=== PATIENT | male | born 1975 | race Caucasian/White ===

== ENCOUNTER 2019-04-13 05:36 | Observation (INO) | payer OTHER ==
[2019-04-10 16:31] VITALS: BMI 29.5
[~2019-04-13] VITALS: Ht 167.6 cm; Wt 84.2 kg
[2019-04-13] VITALS (26 sets, daily range): BP systolic 101–156; BP diastolic 59–89; PULSE 79–102; RESP 16–18; Ht 167.6 cm; Wt 84.2 kg
[2019-04-13] MEDS ORDERED: METF100010 PO (06:50)
[2019-04-13] MEDS ORDERED: ATOR10TA65 PO (06:50)
[2019-04-13] MEDS ORDERED: CEPH500C PO (06:52)
[2019-04-13] MEDS ORDERED: ROPIVACAINE 0.5 % 30 ML VIAL ONE ×2 (06:54→07:31)
[2019-04-13] MEDS ORDERED: NEOMYC/POLYMYX/BACIT 30 GM OINT ONE (06:55)
[2019-04-13] MEDS ORDERED: POLYMYXIN/BACITRACIN 1L IRRIG ONE (06:55)
[2019-04-13] MEDS ORDERED: WARF5TAB PO (07:01)
--- NOTE | 2019-04-13 07:28 | PREAC ---
Date/Time of Note Date/Time of Note DATE: 04/13/19 TIME: 07:24 Anesthesia Eval and Record Evaluation Time Pre-Procedure Interview DATE: 04/13/19 TIME: 07:24 Age 43 Sex male NPO: 8 hrs Preoperative diagnosis left achilles rupture Planned procedure left achilles tendon repair possible haglunds excision Past Medical History Past Medical History: Includes (on coumadin for recent discovery of blood clot in left left in ER when achilles ruptured. started 10 days ago stopped 3 days ago) Cardio: Dyslipidemia Endo: Diabetes Surgery & Anesthesia Issues No known issue Meds Anticoagulation: Yes (coumadin stoopped 3 days ago) Beta Tiana within 24 hr: No Reason Beta Tiana not given: Pt. not on B-Tiana Reported Medications Warfarin Sodium* (Coumadin*) 5 Mg Tablet, 5 MG PO DAILY, TAB 04/13/19 Cephalexin* (Cephalexin*) 500 Mg Capsule, 500 MG PO Q6, #28 CAP 04/13/19 Atorvastatin Calcium (Atorvastatin Calcium) 10 Mg Tablet, 10 MG PO QHS, #30 TAB 04/13/19 Metformin Hcl* (Metformin Hcl*) 1,000 Mg Tablet, 1000 MG PO WITH BREAKFAST DINNE, #60 TAB 04/13/19 Meds reviewed: Yes Allergies Coded Allergies: No Known Allergy (Unverified , 04/13/19) Allergies Reviewed: Yes Labs/Studies Labs Reviewed: Reviewed by anesthesiologist test: N/A Studies: ECG (NSR) Pre-procedure Exam Last vitals Vital Signs Date Temp Pulse Resp B/P (MAP) Pulse Ox O2 O2 Flow FiO2 Time Delivery Rate 04/13/19 98.4 79 18 156/74 96 Room Air 07:04 (101) Airway: Adequate mouth opening, Adequate thyromental dist Mallampati: Mallampati II Teeth: Normal Lung: Normal Heart: Normal ASA Physical Status ASA physical status: 2 Emergency: None Planned Anesthetic General/MAC: ETT Nerve block: Other (popliteal) Planned Pain Management Single shot nerve block, Parenteral pain med, Local by surgeon Pre-operative Attestations Prior to commencing anesthesia and surgery, the patient was re-evaluated, there was verification of: *The patient's identity *The results of appropriate recent lab work and preoperative vital signs *The above evaluation not changing prior to induction *Anesthetic plan, risk benefits, alternative and complications discussed with patient/family; questions answered; patient/family understands, accepts and wishes to proceed. ABHAY TODD CRNA April 13, 2019 07:28
[2019-04-13] MEDS: SOD CHLORIDE 0.9% 1,000 ML IV SCH (07:30)
[2019-04-13] MEDS ORDERED: MIDAZOLAM 1 MG/ML 2 ML INJ ONE (07:33)
--- NOTE | 2019-04-13 07:56 | HPN ---
Date/Time of Note Date/Time of Note DATE: 04/13/19 TIME: 07:56 Interval H&P Admission Note Pt. seen H&P reviewed: No system changes SHAHLA THACKER MD April 13, 2019 07:56
[2019-04-13] MEDS ORDERED: oxyCODONE 5 MG TAB PO PRN (08:00)
[2019-04-13] MEDS ORDERED: ONDANSETRON 4 MG INJ IV PRN ×2 (08:00→10:30)
[2019-04-13] MEDS ORDERED: DIPHENHYDRAMINE 25 MG CAP PO PRN (08:00)
[2019-04-13] MEDS ORDERED: ACETAMINOPHEN 325 MG TAB PO PRN (08:00)
[2019-04-13] MEDS ORDERED: CEFAZOLIN 1 GM INJ IV SCH (08:00)
[2019-04-13] MEDS: CEFAZOLIN 2 GM/50 ML (PMX) 50 ML IVPB SCH ×2 (08:10→17:20)
[2019-04-13] MEDS ORDERED: THROMBIN (BOVINE) 5,000 UNIT VIAL TP ONE (08:52)
[2019-04-13] MEDS ORDERED: CA CHLORIDE 10% 10 ML SYRINGE ONE (08:52)
[2019-04-13] MEDS ORDERED: METOCLOPRAMIDE 10 MG INJ ONE (08:53)
[2019-04-13] MEDS ORDERED: FAMOTIDINE 20 MG INJ ONE (08:53)
[2019-04-13] MEDS ORDERED: PROPOFOL 20 ML ONE ×2 (08:53→10:09)
[2019-04-13] MEDS ORDERED: ONDANSETRON 4 MG INJ ONE (08:53)
[2019-04-13] MEDS ORDERED: ROCURONIUM 50 MG INJ ONE (08:53)
[2019-04-13] MEDS ORDERED: DEXAMETHASONE 4 MG/ML 5 ML INJ ONE (08:53)
[2019-04-13] MEDS: GABAPENTIN 300 MG CAP PO SCH ×3 (09:00→20:41)
[2019-04-13] MEDS ORDERED: NEOSTIGMINE 3 MG/3 ML SYRINGE ONE (09:14)
[2019-04-13] MEDS ORDERED: GLYCOPYRROLATE 0.4 MG INJ ONE (09:14)
[2019-04-13] MEDS ORDERED: LABETALOL HCL 20MG INJ IV PRN (10:30)
[2019-04-13] MEDS ORDERED: hydrALAzine 20 MG INJ IV PRN (10:30)
[2019-04-13] MEDS ORDERED: FENTAnyl 50 MCG/ML VIAL IV PRN (10:30)
[2019-04-13] MEDS ORDERED: MEPERIDINE 25 MG INJ IV PRN (10:30)
[2019-04-13] MEDS ORDERED: HYDROmorphONE 1 MG/5 ML IV SYRINGE IV PRN ×2 (10:30)
[2019-04-13] MEDS ORDERED: OXYCODONE/ACETAMINOPHEN (5/325) TAB PO PRN ×2 (10:30)
[2019-04-13] MEDS ORDERED: LABETALOL HCL 20MG INJ ONE (10:39)
--- NOTE | 2019-04-13 10:50 | PAC ---
Date/Time of Note Date/Time of Note DATE: 04/13/19 TIME: 10:48 Post-Anesthesia Notes Post-Anesthesia Note Last documented vital signs Vital Signs Date Temp Pulse Resp B/P (MAP) Pulse Ox O2 O2 Flow FiO2 Time Delivery Rate 04/13/19 97.7F 96 10 129/89 99 8L FM 10:41 Activity: WNL Respiratory function: WNL Cardiovascular function: WNL Mental status: Baseline Pain reasonably controlled: Yes Hydration appropriate: Yes Nausea/Vomiting absent: Yes ABHAY TODD CRNA April 13, 2019 10:50
--- NOTE | 2019-04-13 11:15 | OPR ---
Date/Time of Note Date/Time of Note DATE: 04/13/19 TIME: 10:48 Operative Report Procedure Date: April 13, 2019 Preoperative Diagnosis Left achilles tendon rupture left ankle haglunds deformity Postoperative Diagnosis Left achilles tendon rupture left ankle haglunds deformity Operation/Procedure Performed Left Achilles tendon repair with allograft left ankle Demi deformity calcaneal exostectomy Left Achilles calcification removal Left Achilles application of PRP and amnion Left Achilles deep capsular exposure and incision Surgeon Shahla Thacker MD Bridge Operator Slip none Anesthesia Type: general, other (popliteal) Anesthesiologist: ABHAY TODD CRNA Tourniquet Time: 92 min at 250 mmHg Estimated Blood Loss: none Transfusion none Specimen none Grafts/Implants none Complications none Pt Condition Post Procedure: stable Disposition: PACU Indications Patient is a 43-year-old male who sustained a Achilles rupture approximately 4 weeks ago. Of note he has uncontrolled diabetes and at time of initial visit was complaining of calf pain. At that time I obtained an ultrasound which confirmed a positive DVT. Patient was started on Coumadin right away and taken off Coumadin approximately 48 hours prior to surgery today. Patient understands that he will need to be placed on Coumadin, Xarelto or Lovenox directly after surgery is completed at postop day #1. Risk Note: Patient was explained the risks and benefits of surgery and the patient's [place] language including not limited to infection, bleeding, injury to blood vessels, nerves, ligaments or tendons. Risks of anesthesia, deep vein thrombosis and need for reduce future surgery. Patient acknowledged these risk by signing the surgical consent form. Procedure Description Patient was met in the preoperative holding area. The correct operative extremity was marked and confirmed with patient consent. Patient was brought to the operative theater and given preoperative anesthesia and regional block anesthesia. Patient was then prepped and draped in normal sterile fashion in the prone position with all bony prominences well-padded. A timeout was taken and all parties in the room agreed it was a correct patient, extremity and procedure. Attention was initially turned to the Achilles where a paramedian incision was made and brought down to the peritenon. Peritenon was incised and retracted. Using 3-0 Vicryl and blunt retractors to put his limited amount of pressure and tension on the skin as possible the Achilles rupture site was exposed. The Demi deformity was identified and debrided and rasped. Lateral x-ray confirmed a reduced amount of Demi's deformity at the calcaneal exostosis. A calcification was identified in the Achilles rupture which was also removed. The wound was irrigated thoroughly. The deep fascia was opened and exposed to allow for greater release and excursion of the Achilles. The proximal Achilles was then debrided and then using a PARS jig was sutured in the typical pars format with 2 locking sutures. The PARS repair was then tested with the suture construct and shown to be well attached. 2 swivel locks drills were then placed into the calcaneus distal to the Achilles attachment. Using a banana a suture lasso suture was passed from the distal Achilles to the proximal Achilles and then suture was passed out to the proximal Achilles down to the distal Achilles and at the swivel lock site. The Achilles was then tensioned to a resting tension that was applying appropriate reapproximation of the Achilles ends. Sutures were then placed through the swivel locks and then swivel locks were then tensioned and tightened into the calcaneus. At this point in time a Jimenes test was performed showing excellent re-apposition of the Achilles and plantar flexion of the Achilles during calcaneal squeeze. The wound was irrigated thoroughly and the Achilles was then closed again at the tear site with a 3-0 PDS and peritenon was then closed and viscous PRP was placed over the tendon repair site followed by an amniotic membrane placed over the peritenon and Achilles. The remainder of the wound was closed with a 3-0 Monocryl followed by a 4-0 Monocryl. The calcaneal incisional sites were closed with a 4-0 nylon in a vertical mattress fashion. Steri-Strips were then applied over the incision and the wound was then dressed with an amniotic membrane and platelet poor plasma soaked sponges and placed in a well-padded short leg splint in a plantarflexed position. Patient was taken to the PACU in a stable condition. All sponge and needle counts were correct. Toes were warm and well perfused SHAHLA THACKER MD April 13, 2019 10:59
[2019-04-13] MEDS ORDERED: CEFAZOLIN 1 GM INJ ONE (13:17)
--- NOTE | 2019-04-13 13:36 | DS ---
Date/Time of Note Date/Time of Note DATE: 04/13/19 TIME: 13:36 Discharge Summary Admission/Discharge Info Admit Date/Time April 13, 2019 at 08:01 Discharge Date/Time Patient Condition: Stable Hospital Course see dictated report Home Meds Active Scripts Apixaban* (Eliquis*) 5 Mg Tablet, 5 MG PO BID, #60 TAB 2 Refills start 04/19/19 Prov:LUCI BEE 04/14/19 Apixaban* (Eliquis*) 5 Mg Tablet, 10 MG PO BID for 4 Days, #16 TAB Prov:LUCI BEE 04/14/19 Reported Medications Cephalexin* (Cephalexin*) 500 Mg Capsule, 500 MG PO Q6, #28 CAP 04/13/19 Atorvastatin Calcium (Atorvastatin Calcium) 10 Mg Tablet, 10 MG PO QHS, #30 TAB 04/13/19 Metformin Hcl* (Metformin Hcl*) 1,000 Mg Tablet, 1000 MG PO WITH BREAKFAST DINNE, #60 TAB 04/13/19 Discontinued Reported Medications Warfarin Sodium* (Coumadin*) 5 Mg Tablet, 5 MG PO DAILY, TAB 04/13/19 Primary Care Provider Not On Staff Doctor Pending Labs Laboratory Tests Test 04/13/19 06:46 Bedside Glucose 186 mg/dL (70-220) LUCI BEE April 13, 2019 13:36
[2019-04-13] MEDS ORDERED: RIVA15TA PO (13:41)
[2019-04-13] MEDS ORDERED: RIVA20TA5 PO (13:41)
[2019-04-13] MEDS ORDERED: GLUCAGON 1 MG INJ IM PRN (14:00)
[2019-04-13] MEDS ORDERED: GLUCOSE GEL 15 GRAM TUBE BUCCAL PRN (14:00)
[2019-04-13] MEDS ORDERED: GLUCOSE GEL 15 GRAM TUBE PO PRN ×2 (14:00)
[2019-04-13] MEDS ORDERED: DEXTROSE 50% 50 ML SYRINGE IV PRN ×2 (14:00)
[2019-04-13] MEDS: RIVAROXABAN 15 MG TABLET PO SCH (17:33)
[2019-04-13] MEDS: INSULIN ASPART [NOVOLOG] 3 ML PEN SC SCH ×2 (17:34→20:43)
[2019-04-13] MEDS: metFORMIN 500 MG TAB PO SCH (17:41)
[2019-04-13] MEDS: ACCU-CHEK XX SCH ×2 (17:41→21:00)
[2019-04-13] MEDS ORDERED: ATORVASTATIN 10 MG TAB PO SCH (21:00)
[2019-04-14] MEDS: CEFAZOLIN 2 GM/50 ML (PMX) 50 ML IVPB SCH ×3 (00:30→16:21)
[2019-04-14] MEDS ORDERED: ACCU-CHEK XX SCH (02:00)
[2019-04-14 02:50] VITALS: BP 106/61; PULSE 99; RESP 16
[2019-04-14] MEDS: SOD CHLORIDE 0.9% 1,000 ML IV SCH (07:30)
[2019-04-14] MEDS: ACCU-CHEK XX SCH ×3 (07:30→17:26)
[2019-04-14 08:03] VITALS: BP 104/66; PULSE 80; RESP 16
[2019-04-14] MEDS: HYDROmorphONE 1 MG/ML SYG IV PRN ×2 (08:04→12:04)
[2019-04-14] MEDS: INSULIN ASPART [NOVOLOG] 3 ML PEN SC SCH ×3 (08:07→17:26)
[2019-04-14] MEDS: metFORMIN 500 MG TAB PO SCH ×2 (08:11→17:23)
[2019-04-14] MEDS: RIVAROXABAN 15 MG TABLET PO SCH ×2 (08:11→17:23)
[2019-04-14] MEDS: GABAPENTIN 300 MG CAP PO SCH ×2 (08:11→12:13)
[2019-04-14] MEDS ORDERED: RIVAROXABAN 10 MG TABLET PO SCH (10:30)
[2019-04-14 14:16] VITALS: BP 110/72; PULSE 82; RESP 16
[2019-04-14] MEDS ORDERED: APIX5TAB PO (17:48)
--- NOTE | 2019-04-14 22:00 | QN ---
Documentation Comment Patient was discharged prior to my evaluation this evening, despite me asking Patricia to keep him in house until I see him this evening. When I spoke with Patricia this afternoon I specifically asked her to confirm patient had his Xarelto at home prior to discharge. She confirmed patient had the Xarelto at home, but she was asked to keep him in house until I could see him this evening and then discharge patient. Upon arrival to the floor, patient had already been discharged. Patient was discharged with Elliquis per the chart, despite Patricia confirming that patient had already picked up with the xarelto, and when the nurse Marilee spoke to the patient oriana in guamanian they were about to take Coumadin 5mg as the stated Patricia had told her to do, as well as the Xarelto and then parts picker the Elliquis in the morning. Thankfully, we were able to speak to the patient and the this evening and give them accurate instructions on the DVT medication management. Patient was instructed to not take any Coumadin at all and not parts picker the Elliquis and to only take the Xarelto 15 mg po BID for the first 21 days then 20 mg po qday for the first 3-6 mos per PCP. Patient will follow up in 1 week with me in my clinic -- MD KIRSTIE Lynch,SHAHLA Lock MD April 14, 2019 22:00
--- NOTE | 2019-04-14 22:42 | CONS ---
DATE OF ADMISSION: 04/13/2019 DATE OF CONSULTATION: 04/13/2019 INDICATION FOR CONSULTATION: Medical management. HISTORY OF PRESENTING COMPLAINT: Mr. Kruse is a 43-year-old male who was brought in for elective left Achilles tendon repair after he had suffered left Achilles tendon rupture and left ankle Demi's deformity. He apparently suffered the injury 4 weeks ago and was complaining of calf pain. The orthopedic surgeon in the office, had an old did an ultrasound and confirmed the positive DVT. The patient was treated with Coumadin and has been off Coumadin for 48 hours prior to surgery. At this time, he is postop. He is having some postoperative pain, but otherwise is doing well. States he had no complaints prior to surgery notes fever, chest pain, abdominal pain or shortness of breath. Surgery supposedly went well without complications, patient is being admitted postop for observation and possible discharge to home tomorrow on anticoagulation. PAST MEDICAL HISTORY: Positive for: 1. Diabetes mellitus. 2. Recently diagnosed thrombosis. 3. Dyslipidemia. PAST SURGICAL HISTORY: This is his first surgery. ALLERGIES: NO KNOWN ALLERGIES. FAMILY HISTORY: Positive for diabetes. HOME MEDICATIONS: Reviewed and reconciled. REVIEW OF SYSTEMS: Per HPI. PHYSICAL EXAMINATION VITAL SIGNS: Temperature 98, pulse 84, respirations 16, blood pressure 126/81, saturations 97% on room air. GENERAL: The patient was alert, oriented, in no distress. HEENT: Head is normocephalic. Pupils equal, round and reactive. NECK: Supple. CHEST: Clear. CARDIOVASCULAR: S1, S2, no murmurs. ABDOMEN: Soft, nontender. EXTREMITIES: Left lower extremity is encased in a dressing and a short leg splint. PSYCHIATRIC: He was calm and cooperative with exam. LABORATORY VALUES: We have a point of care glucose at 225. ASSESSMENT: A 33-year-old male with past medical history of diabetes mellitus who was brought in for elective left Achilles tendon repair and history of recently diagnosed DVT, for whom we were consulted for monitoring, observation and medical management. PLAN OF CARE: At this time, continue inpatient observation, pain control. Resume home hypoglycemics and titrate as indicated for optimal controlled. Orthopedic surgery has cleared the patient to resume anticoagulation therapy, will begin him on NOAC, contact his insurance company to find out which one is approved. Further intervention will depend on his course. Thank you for the consult. We will follow the patient with you. Dictated By: LUCI BEE MD, BA/KENDRICK Conf#: [id number] DID#: [id number] MTDD
--- NOTE | 2019-04-14 23:09 | DS ---
DATE OF ADMISSION: 04/13/2019 DATE OF DISCHARGE: 04/14/2019 FINAL DIAGNOSIS: A 43-year-old male who suffered: 1. Left Achilles tendon rupture about 4 weeks prior to presentation, brought in for elective repair, status post repair in 07/14/2019. 2. Recently diagnosed lower extremity deep venous thrombosis on anticoagulation. 3. Diabetes mellitus type 2 with suboptimal control. CONSULTS ON THE CASE. We were consulted on this case by surgeon, admitting, Dr. Timoteo Lobo. INTERVENTION: The patient underwent left Achilles' tendon repair with allograft and other procedures 04/13/2019. For details, please review the patient's chart and OP reports. SHORT HOSPITALIZATION COURSE: The patient was monitored in-house observation postoperatively. We provided pain control. Also. blood glucose levels were monitored as well and was started on NOAC for DVT management. The patient was initially started on Xarelto, but when he tried to fill that at the pharmacy, he confirmed that Eliquis actually was covered by his insurance plan, and so he was discharged on Eliquis. FOLLOWUP: He will follow up with his primary care doctor within the next 1 to 2 weeks to notify them of events of hospitalization and for possible titration of his hypoglycemics as he had suboptimal control of his diabetes. I will also follow up with the orthopedic surgeon as per the instructions. DISCHARGE CONDITION: Stable. ACTIVITY: As tolerated. DISCHARGE MEDICATIONS: Please review the patient's chart. The patient will also be discharged with home health for physical therapy. Dictated By: LUCI BEE MD, BA/KENDRICK Conf#: [id number] DID#: [id number] DARION
== END 2019-04-14 18:50 | disposition home or self-care (01) ==
LOC: SDS 05:36 → REC 08:01 → SDS 08:01 → PP2 12:00
PROVIDERS: ADMIT Orthopaedic Surgery; ATTEND Orthopaedic Surgery
DX: S86.012A Strain of left Achilles tendon, initial encounter (principal); M92.62 Juvenile osteochondrosis of tarsus, left ankle; E11.65 Type 2 diabetes mellitus with hyperglycemia; E78.5 Hyperlipidemia, unspecified; Z86.718 Personal history of other venous thrombosis and embolism; Z79.01 Long term (current) use of anticoagulants; X58.XXXA Exposure to other specified factors, initial encounter
CPT/HCPCS: 27652; 28119; 73610; 82306; 82962; 97110; 97116; 97162; 97530; J0690; J1100; J1170; J1815; J2250; J2405; J2710; J2765; J2795; J3010; J7030; Z7500; Z7512; Z7610; G0378

== ENCOUNTER 2019-06-03 13:58 | Inpatient (IN) | payer OTHER ==
[~2019-06-03] VITALS: Ht 167.6 cm; Wt 86.1 kg
[~2019-06-03 13:58] MED LIST: APIX5TAB PO; ATOR10TA65 PO; CEPH500C PO; METF100010 PO
--- NOTE | 2019-06-03 14:42 | ERD ---
ER Documentation Chief Complaint Chief Complaint sent by clinic for l. foot surgical wound opening and diabetes HPI 43-year-old man referred here by medical clinic for wound dehiscence to the left Achilles tendon, he had surgical repair about 2 months ago and states over the last 2 days he has had wound dehiscence, erythema to the skin, and purulent discharge. He was referred here from his medical clinic for evaluation. ROS All systems reviewed and are negative except as per history of present illness. Medications Home Meds Active Scripts Apixaban* (Eliquis*) 5 Mg Tablet, 5 MG PO BID, #60 TAB 2 Refills start 04/19/19 Prov:LUCI BEE. 04/14/19 Apixaban* (Eliquis*) 5 Mg Tablet, 10 MG PO BID for 4 Days, #16 TAB Prov:LUCI EBE M. 04/14/19 Reported Medications Cephalexin* (Cephalexin*) 500 Mg Capsule, 500 MG PO Q6, #28 CAP 04/13/19 Atorvastatin Calcium (Atorvastatin Calcium) 10 Mg Tablet, 10 MG PO QHS, #30 TAB 04/13/19 Metformin Hcl* (Metformin Hcl*) 1,000 Mg Tablet, 1000 MG PO WITH BREAKFAST DINNE, #60 TAB 04/13/19 Allergies Allergies: Coded Allergies: No Known Allergy (Unverified , 04/13/19) PMhx/Soc Left Achilles tendon rupture and surgical repair about 2 months ago, lower extremity DVT, diabetes mellitus type 2 History of Surgery: No Anesthesia Reaction: No Hx Neurological Disorder: No Hx Respiratory Disorders: No Hx Cardiac Disorders: Yes (HIGH CHOLESTEROL) Hx Psychiatric Problems: No Hx Miscellaneous Medical Probl: Yes (dyslipidemia, DM, DVT LLE) Hx Alcohol Use: No Hx Substance Use: No Hx Tobacco Use: No FmHx Family History: No diabetes Physical Exam Vitals Vital Signs Date Temp Pulse Resp B/P (MAP) Pulse Ox O2 O2 Flow FiO2 Time Delivery Rate 06/03/19 98 17 135/85 99 Room Air 19:00 (102) 06/03/19 91 16 123/93 97 Room Air 17:00 (103) 06/03/19 99.4 116 20 113/73 98 14:05 (86) Physical Exam Const: No acute distress, well-developed well-nourished, afebrile Resp: Clear to auscultation bilaterally Cardio: Regular rate and rhythm, no murmurs Skin: Mild wound dehiscence to the surgical site over the left Achilles, there is granulation tissue present and inflammatory changes to the skin around the incision site mild serosanguineous discharge noted, nontender, no purulent discharge Back: No midline or flank tenderness Ext: No cyanosis, or edema, calves are symmetrical, no Homans sign, no popliteal cords sign Neur: Awake and alert x3, no focal deficits or facial asymmetry Psych: Normal Mood and Affect Result Diagram: 06/03/19 1524 06/03/19 1524 Results 24 hrs Laboratory Tests Test 06/03/19 15:24 White Blood Count 13.6 10^3/ul Red Blood Count 5.78 10^6/ul Hemoglobin 15.3 g/dl Hematocrit 45.8 % Mean Corpuscular Volume 79.2 fl Mean Corpuscular Hemoglobin 26.5 pg Mean Corpuscular Hemoglobin Concent 33.4 g/dl Red Cell Distribution Width 12.9 % Platelet Count 329 10^3/UL Mean Platelet Volume 9.3 fl Immature Granulocytes % 0.300 % Neutrophils % 73.7 % Lymphocytes % 18.8 % Monocytes % 6.3 % Eosinophils % 0.5 % Basophils % 0.4 % Nucleated Red Blood Cells % 0.0 /100WBC Immature Granulocytes # 0.040 10^3/ul Neutrophils # 10.1 10^3/ul Lymphocytes # 2.6 10^3/ul Monocytes # 0.9 10^3/ul Eosinophils # 0.1 10^3/ul Basophils # 0.1 10^3/ul Nucleated Red Blood Cells # 0.0 10^3/ul Prothrombin Time 12.9 Sec Prothrombin Time Ratio 1.0 INR International Normalized Ratio 0.96 Activated Partial Thromboplast Time 32.5 Sec Sodium Level 141 mmol/L Potassium Level 3.9 mmol/L Chloride Level 105 mmol/L Carbon Dioxide Level 25 mmol/L Anion Gap 11 Blood Urea Nitrogen 11 mg/dl Creatinine 0.66 mg/dl Est Glomerular Filtrat Rate mL/min > 60 mL/min Glucose Level 185 mg/dl Calcium Level 9.4 mg/dl C-Reactive Protein 3.1 mg/dl Current Medications Medications Dose Sig/Chin Start Time Status Last (Trade) Ordered Route PRN Stop Time Admin Dose Reason Admin Sodium 500 ml @ Q1H STAT 06/03/19 DC 06/03/19 Chloride 500 mls/hr IV 15:01 06/03/19 15:34 16:00 Morphine 4 mg ONCE STAT 06/03/19 DC 06/03/19 Sulfate IV 15:01 06/03/19 15:33 (morphine) 15:04 Ondansetron 4 mg ONCE STAT 06/03/19 DC 06/03/19 HCl (Zofran IV 15:01 06/03/19 15:33 Inj) 15:04 Piperacillin 100 ml @ ONCE ONCE 06/03/19 DC 06/03/19 Sod/ 200 mls/hr IVPB 18:30 06/03/19 18:43 Tazobactam 18:59 Sod Vancomycin 250 ml @ ONCE ONCE 06/03/19 HCl 125 mls/hr IVPB 18:30 06/03/19 20:29 Procedures/MDM IV line was established patient was placed on awake overnight monitor rhythm strip revealed a sinus rhythm at about 80 bpm with upright P and T waves. Patient was afebrile I administered 1 L normal saline IV, morphine 4 mg IV, Zofran 4 mg IV. Left lower extremity ultrasound was performed, no deep vein thrombosis noted CBC and electrolytes were unremarkable, coagulation profile within normal limits. CRP elevated at 3.2 I spoke to the patient's orthopedic surgeon Dr. Kylie Lobo and he agreed to consult the patient in the emergency department and recommended admission for surgical washout in a.m. after seeing the patient at the bedside. Patient to be kept n.p.o. after midnight, I treated him here with Zosyn 3.375 g IV and vancomycin 1 g IV Patient admitted to [facility] Diagnosis: Primary Impression: Postoperative infection Encounter type: initial encounter Postoperative infection type: superficial incisional surgical site Qualified Codes: T81.41XA - Infection following a procedure, superficial incisional surgical site, initial encounter Ruled Out: Encounter for wound re-check Condition: MAYCOL Geronimo MD Jun 03, 2019 14:41
[2019-06-03] MEDS ORDERED: ONDANSETRON 4 MG INJ IV STA (15:01)
[2019-06-03] MEDS ORDERED: morphine 4 MG/ML VIAL IV STA (15:01)
[2019-06-03] MEDS ORDERED: SOD CHLORIDE 0.9% 500 ML IV STA (15:01)
[2019-06-03] MEDS ORDERED: VANCOMYCIN 1 GM (PMX) 250 ML IVPB ONE (18:30)
[2019-06-03] MEDS ORDERED: PIPER-TAZO 3.375 GM IV (PMX) 100 ML IVPB ONE (18:30)
--- NOTE | 2019-06-03 18:39 | QN ---
Documentation Job number: [id number] SHAHLA THACKER MD Jun 03, 2019 18:39
--- NOTE | 2019-06-03 21:24 | CONS ---
DATE OF ADMISSION: 06/03/2019 DATE OF CONSULTATION: 06/03/2019 REQUESTING PHYSICIAN: Preston Gerardo MD REASON FOR CONSULTATION: Left Achilles drainage. HISTORY OF PRESENT ILLNESS: Mr. Kruse is a 43-year-old gentleman who is 7-1/2 weeks status post left Achilles repair. He was doing well up until the past 2 days when he noticed increased redness and drainage from his Achilles wound. The patient went to his PCP and was referred to ED for evaluation today. He denies any fevers, chills, nausea or vomiting. Of note, the patient has a history of diabetes mellitus. PAST MEDICAL HISTORY: Significant for diabetes, hypercholesterolemia as well as a DVT in the left lower extremity, on which he is taking Eliquis for. MEDICATIONS: Please see the medication per the chart. ALLERGIES: NO KNOWN DRUG ALLERGIES. SOCIAL HISTORY: As stated above. FAMILY HISTORY: Nonrelevant. Physical Exam Vitals Vital Signs Date Temp Pulse Resp B/P (MAP) Pulse Ox O2 O2 Flow FiO2 Time Delivery Rate 06/03/19 98 17 135/85 99 Room Air 19:00 (102) 06/03/19 91 16 123/93 97 Room Air 17:00 (103) 06/03/19 99.4 116 20 113/73 98 14:05 (86) Physical Exam Const: No acute distress, well-developed well-nourished, afebrile Resp: Clear to auscultation bilaterally Cardio: Regular rate and rhythm, Skin: Mild wound dehiscence to the surgical site over the left Achilles, there is granulation tissue present and inflammatory changes to the skin around the incision site mild serosanguineous discharge noted, Back: No midline or flank tenderness Ext: No cyanosis, or edema, calves are symmetrical, no Homans sign, no p opliteal cords sign Neur: Awake and alert x3, no focal deficits or facial asymmetry Psych: Normal Mood and Affect MUSCULOSKELETAL: On evaluation of his left extremities, he has erythema, warmth and fluctuance with 1 cm area of wound opening with purulent drainage from his Achilles. He has an intact Jimenes test with plantar flexion on squeeze. He has intact sensation to light touch at the medial, lateral, dorsal plantar, 1st dorsal distribution Result Diagram: 06/03/19 1524 06/03/19 1524 Results 24 hrs Laboratory Tests Test 06/03/19 15:24 White Blood Count 13.6 10^3/ul Red Blood Count 5.78 10^6/ul Hemoglobin 15.3 g/dl Hematocrit 45.8 % Mean Corpuscular Volume 79.2 fl Mean Corpuscular Hemoglobin 26.5 pg Mean Corpuscular Hemoglobin Concent 33.4 g/dl Red Cell Distribution Width 12.9 % Platelet Count 329 10^3/UL Mean Platelet Volume 9.3 fl Immature Granulocytes % 0.300 % Neutrophils % 73.7 % Lymphocytes % 18.8 % Monocytes % 6.3 % Eosinophils % 0.5 % Basophils % 0.4 % Nucleated Red Blood Cells % 0.0 /100WBC Immature Granulocytes # 0.040 10^3/ul Neutrophils # 10.1 10^3/ul Lymphocytes # 2.6 10^3/ul Monocytes # 0.9 10^3/ul Eosinophils # 0.1 10^3/ul Basophils # 0.1 10^3/ul Nucleated Red Blood Cells # 0.0 10^3/ul Prothrombin Time 12.9 Sec Prothrombin Time Ratio 1.0 INR International Normalized Ratio 0.96 Activated Partial Thromboplast Time 32.5 Sec Sodium Level 141 mmol/L Potassium Level 3.9 mmol/L Chloride Level 105 mmol/L Carbon Dioxide Level 25 mmol/L Anion Gap 11 Blood Urea Nitrogen 11 mg/dl Creatinine 0.66 mg/dl Est Glomerular Filtrat Rate mL/min > 60 mL/min Glucose Level 185 mg/dl Calcium Level 9.4 mg/dl C-Reactive Protein 3.1 mg/dl Current Medications Medications Dose Sig/Chin Start Time Status Last (Trade) Ordered Route PRN Stop Time Admin Dose Reason Admin Sodium 500 ml @ Q1H STAT 06/03/19 DC 06/03/19 Chloride 500 mls/hr IV 15:01 06/03/19 15:34 16:00 Morphine 4 mg ONCE STAT 06/03/19 DC 06/03/19 Sulfate IV 15:01 06/03/19 15:33 (morphine) 15:04 Ondansetron 4 mg ONCE STAT 06/03/19 DC 06/03/19 HCl (Zofran IV 15:01 06/03/19 15:33 Inj) 15:04 Piperacillin 100 ml @ ONCE ONCE 06/03/19 DC 06/03/19 Sod/ 200 mls/hr IVPB 18:30 06/03/19 18:43 Tazobactam 18:59 Sod Vancomycin 250 ml @ ONCE ONCE 06/03/19 HCl 125 mls/hr IVPB 18:30 06/03/19 20:29 . ASSESSMENT AND PLAN: The patient is a 43-year-old male 7-1/2 weeks status post left Achilles repair with history of diabetes type 2 and left lower extremity deep venous thrombosis in which he is on Eliquis for, now with 2 days of wound drainage with concern for likely wound infection. PLAN: I am recommending irrigation and debridement of his Achilles. The patient was discussed with the patient and his with a network admin present and we discussed the plan that he may need multiple surgeries for irrigation and debridement and possible flap, possible skin graft, possible revision Achilles repair in the future. Plan at this time is n.p.o. after midnight. Vancomycin and Zosyn per the ID service, which we will obtain an ID consult for. Admit to the hospitalist for overall management as well as diabetes control and DVT management. The patient is nonweightbearing at this time. Plan for I and D tomorrow morning. The patient understood all these questions or concerns and all questions were answered. Dictated By: SHAHLA THACKER MD EIF/NTS Conf#: [id number] DID#: [id number] CC: PRESTON GERARDO MD;*EndCC* MTDD
[2019-06-03] MEDS ORDERED: ALBUTEROL/IPRATROPIUM (NEB) 3 ML AMP HHN PRN (21:30)
[2019-06-03] MEDS ORDERED: NACL 0.9% 3 ML SYG IV SCH (21:30)
[2019-06-03] MEDS ORDERED: ONDANSETRON 4 MG INJ IV PRN (21:30)
[2019-06-03] MEDS ORDERED: HYDROCODONE/APAP (5/325) TAB PO PRN (21:30)
[2019-06-03 22:04] VITALS: BP 126/82; PULSE 89; RESP 17; Ht 167.6 cm; Wt 86.1 kg
--- NOTE | 2019-06-03 22:26 | HP ---
Date/Time of Note Date/Time of Note DATE: 06/03/19 TIME: 22:26 Assessment/Plan VTE Prophylaxis Pharmacological prophylaxis: heparin Lines/Catheters IV Catheter Type (from Nrsg): Saline Lock Assessment/Plan Assessment/Plan 1. Postop infection of left Achilles: Patient is status post repair about 8 weeks ago -IV antibiotic -Plan for washout by Ortho -Pain management 2. Left lower extremity DVT: On Eliquis -Hold Eliquis for now 3. Type 2 diabetes: Insulin while in-house 4. Dyslipidemia: Resume statin when no longer n.p.o. Result Diagram: 06/03/19 1524 06/03/19 1524 Results 24hrs Laboratory Tests Test 06/03/19 15:24 White Blood Count 13.6 H Red Blood Count 5.78 Hemoglobin 15.3 Hematocrit 45.8 Mean Corpuscular Volume 79.2 L Mean Corpuscular Hemoglobin 26.5 L Mean Corpuscular Hemoglobin Concent 33.4 Red Cell Distribution Width 12.9 Platelet Count 329 Mean Platelet Volume 9.3 Immature Granulocytes % 0.300 Neutrophils % 73.7 Lymphocytes % 18.8 Monocytes % 6.3 Eosinophils % 0.5 Basophils % 0.4 Nucleated Red Blood Cells % 0.0 Immature Granulocytes # 0.040 H Neutrophils # 10.1 H Lymphocytes # 2.6 Monocytes # 0.9 Eosinophils # 0.1 Basophils # 0.1 Nucleated Red Blood Cells # 0.0 Erythrocyte Sedimentation Rate 4 Prothrombin Time 12.9 Prothrombin Time Ratio 1.0 INR International Normalized Ratio 0.96 Activated Partial Thromboplast Time 32.5 Sodium Level 141 Potassium Level 3.9 Chloride Level 105 Carbon Dioxide Level 25 Anion Gap 11 Blood Urea Nitrogen 11 Creatinine 0.66 Est Glomerular Filtrat Rate mL/min > 60 Glucose Level 185 Calcium Level 9.4 C-Reactive Protein 3.1 H HPI/ROS Admit Date/Time Admit Date/Time Jun 03, 2019 at 19:13 Hx of Present Illness Patient is a 51-year-old male with a history of type 2 diabetes, dyslipidemia, left lower extremity DVT on Eliquis, and left Achilles tendon repair about 8 weeks ago who presented to ER complaining of redness and drainage in the left Achilles area. When presented to ER, was tachycardic with a heart rate of 116 otherwise no fever. WBC 13,000. Left ankle MRI shows Complete versus near- complete tear of the Achilles tendon, with about 9 mm retraction. PMH/Family/Social Past Medical History Past Surgical Hx: other Family History Significant Family History: no pertinent family hx Social History Alcohol Use: none Smoking Status: Never smoker Drug Use: none Exam Constitutional: other (No acute distress) Head: normocephalic, atraumatic Eyes: EOMI, PERRL Respiratory: clear to auscultation, normal air movement Cardiovascular: regular rate and rhythm Gastrointestinal: soft Extremities: normal pulses Medications Current Medications Dextrose/Sodium Chloride 1,000 ml @ 100 mls/hr Q10H IV ; Start 06/03/19 at 23:59 IV Flush (NS 3 ml) 3 ml PER PROTOCOL IV ; Start 06/03/19 at 21:30 Ondansetron HCl (Zofran Inj) 4 mg Q6H PRN IV NAUSEA/VOMITING; Start 06/03/19 at 21:30 Acetaminophen/ Hydrocodone Bitart ([place] (5/325)) 1 tab Q6H PRN PO .MOD PAIN 4- 6; Start 06/03/19 at 21:30 Morphine Sulfate (morphine) 2 mg Q4H PRN IV .SEVERE PAIN 7-10; Start 06/03/19 at 21:30 Albuterol/ Ipratropium (Duoneb) 3 ml Q2H RESP THERAPY PRN HHN SHORTNESS OF BREATH; Start 06/03/19 at 21:30 Atorvastatin Calcium (Lipitor) 10 mg QHS PO ; Start 06/04/19 at 21:00 Cefepime HCl 50 ml @ 100 mls/hr Q12 IVPB ; Start 06/04/19 at 09:00 Vancomycin HCl (Vanco Iv Per Pharmacy) VANCOMYCIN PER PHARMACY PER PROTOCOL XX ; Start 06/04/19 at 06:00 Vancomycin HCl 250 ml @ 125 mls/hr Q8H IVPB ; Start 06/04/19 at 06:00 Coded Allergies: No Known Allergy (Unverified , 04/13/19) Social History Smoking Status: Never smoker Exam/Review of Systems Vital Signs Vitals Vital Signs Date Temp Pulse Resp B/P (MAP) Pulse Ox O2 O2 Flow FiO2 Time Delivery Rate 06/03/19 98.1 89 17 126/82 97 22:04 (97) 06/03/19 Room Air 21:08 SOLANGE VARGAS MD Jun 03, 2019 22:26
[2019-06-03] MEDS: DEXTROSE 5%-0.45% NACL 1,000 ML IV SCH (22:39)
[2019-06-04] VITALS (20 sets, daily range): BP systolic 107–146; BP diastolic 58–91; PULSE 60–97; RESP 7–20
[2019-06-04] MEDS ORDERED: DEXTROSE 50% 50 ML SYRINGE IV PRN ×2 (01:00)
[2019-06-04] MEDS ORDERED: GLUCAGON 1 MG INJ IM PRN (01:00)
[2019-06-04] MEDS ORDERED: GLUCOSE GEL 15 GRAM TUBE PO PRN ×2 (01:00)
[2019-06-04] MEDS ORDERED: GLUCOSE GEL 15 GRAM TUBE BUCCAL PRN (01:00)
[2019-06-04] MEDS: INSULIN ASPART [NOVOLOG] 3 ML PEN SC SCH ×6 (01:01→20:43)
[2019-06-04] MEDS: VANCOMYCIN 1 GM 250 ML IVPB SCH ×3 (05:14→23:36)
[2019-06-04] MEDS ORDERED: VANCOMYCIN IV PER PHARMACY XX SCH (06:00)
--- NOTE | 2019-06-04 07:29 | PREAC ---
Date/Time of Note Date/Time of Note DATE: 06/04/19 TIME: 07:27 Anesthesia Eval and Record Evaluation Time Pre-Procedure Interview DATE: 06/04/19 TIME: 07:27 Age 43 Sex male NPO: 8 hrs Preoperative diagnosis left achilles tendon infection Planned procedure left achilles irrigation and debridement Past Medical History Past Medical History: Includes Cardio: Dyslipidemia Endo: Diabetes Surgery & Anesthesia Issues No known issue Meds Anticoagulation: No Beta Tiana within 24 hr: No Reason Beta Tiana not given: Pt. not on B-Tiana Active Scripts Apixaban* (Eliquis*) 5 Mg Tablet, 5 MG PO BID, #60 TAB 2 Refills start 04/19/19 Prov:BLAKE BEEGabby M. 04/14/19 Apixaban* (Eliquis*) 5 Mg Tablet, 10 MG PO BID for 4 Days, #16 TAB Prov:LUCI BEE. 04/14/19 Reported Medications Cephalexin* (Cephalexin*) 500 Mg Capsule, 500 MG PO Q6, #28 CAP 04/13/19 Atorvastatin Calcium (Atorvastatin Calcium) 10 Mg Tablet, 10 MG PO QHS, #30 TAB 04/13/19 Metformin Hcl* (Metformin Hcl*) 1,000 Mg Tablet, 1000 MG PO WITH BREAKFAST DINNE, #60 TAB 04/13/19 Current Medications Dextrose/Sodium Chloride 1,000 ml @ 100 mls/hr Q10H IV Last administered on 06/03/19at 22:39; Admin Dose 100 MLS/HR; Start 06/03/19 at 23:59 IV Flush (NS 3 ml) 3 ml PER PROTOCOL IV ; Start 06/03/19 at 21:30 Ondansetron HCl (Zofran Inj) 4 mg Q6H PRN IV NAUSEA/VOMITING; Start 06/03/19 at 21:30 Acetaminophen/ Hydrocodone Bitart ([place] (5/325)) 1 tab Q6H PRN PO .MOD PAIN 4- 6; Start 06/03/19 at 21:30 Morphine Sulfate (morphine) 2 mg Q4H PRN IV .SEVERE PAIN 7-10; Start 06/03/19 at 21:30 Albuterol/ Ipratropium (Duoneb) 3 ml Q2H RESP THERAPY PRN HHN SHORTNESS OF BREATH; Start 06/03/19 at 21:30 Atorvastatin Calcium (Lipitor) 10 mg QHS PO ; Start 06/04/19 at 21:00 Cefepime HCl 50 ml @ 100 mls/hr Q12 IVPB ; Start 06/04/19 at 09:00 Vancomycin HCl (Vanco Iv Per Pharmacy) VANCOMYCIN PER PHARMACY PER PROTOCOL XX ; Start 06/04/19 at 06:00 Vancomycin HCl 250 ml @ 125 mls/hr Q8H IVPB Last administered on 06/04/19at 05:14; Admin Dose 125 MLS/HR; Start 06/04/19 at 06:00 Insulin Aspart (Novolog Insulin Pen) NOVOLOG *MILD* ALGORI... Q4 SC Last administered on 06/04/19at 05:13; Admin Dose 2 UNIT; Start 06/04/19 at 01:00 Miscellaneous Information 1 ea NOTE XX ; Start 06/04/19 at 01:00 Glucose (Glutose) 15 gm Q15M PRN PO DECREASED GLUCOSE; Start 06/04/19 at 01:00 Glucose (Glutose) 22.5 gm Q15M PRN PO DECREASED GLUCOSE; Start 06/04/19 at 01:00 Dextrose (D50w Syringe) 25 ml Q15M PRN IV DECREASED GLUCOSE; Start 06/04/19 at 01:00 Dextrose (D50w Syringe) 50 ml Q15M PRN IV DECREASED GLUCOSE; Start 06/04/19 at 01:00 Glucagon (Glucagen) 1 mg Q15M PRN IM DECREASED GLUCOSE; Start 06/04/19 at 01:00 Glucose (Glutose) 15 gm Q15M PRN BUCCAL DECREASED GLUCOSE; Start 06/04/19 at 01:00 Meds reviewed: Yes Allergies Coded Allergies: No Known Allergy (Unverified , 04/13/19) Allergies Reviewed: Yes Labs/Studies Labs Reviewed: Reviewed by anesthesiologist Result Diagram: 06/04/19 0651 06/03/19 1524 Laboratory Tests 06/03/19 15:24 06/04/19 06:51 test: N/A Pre-procedure Exam Last vitals Vital Signs Date Temp Pulse Resp B/P (MAP) Pulse Ox O2 O2 Flow FiO2 Time Delivery Rate 06/04/19 98.0 92 19 113/59 98 02:01 (77) 06/03/19 Room Air 21:08 Airway: Adequate mouth opening, Adequate thyromental dist Mallampati: Mallampati II Teeth: Normal Lung: Normal Heart: Normal ASA Physical Status ASA physical status: 2 Emergency: None Planned Anesthetic General/MAC: ETT Planned Pain Management Parenteral pain med Pre-operative Attestations Prior to commencing anesthesia and surgery, the patient was re-evaluated, there was verification of: *The patient's identity *The results of appropriate recent lab work and preoperative vital signs *The above evaluation not changing prior to induction *Anesthetic plan, risk benefits, alternative and complications discussed with patient/family; questions answered; patient/family understands, accepts and wishes to proceed. DEBORAH SERRANO Jun 04, 2019 07:29
[2019-06-04] MEDS ORDERED: PROPOFOL 20 ML ONE (07:35)
--- NOTE | 2019-06-04 08:04 | PN ---
Date/Time of Note Date/Time of Note DATE: 06/04/19 TIME: 08:01 Assessment/Plan Lines/Catheters IV Catheter Type (from Nrs): Peripheral IV Assessment/Plan Assessment/Plan 7.5 weeks s/p Achilles repair, uncontrolled DM2, +DVT now with 2 days of purulent drainage - to OR today for I&D - NPO - Vanco Zosyn - ID consulted - NWB --- Bladimir Thacker MD Subjective 24 Hr Interval Summary PAtient doing well today. No f/c/n/v Exam/Review of Systems Vital Signs Vitals Vital Signs Date Temp Pulse Resp B/P (MAP) Pulse Ox O2 O2 Flow FiO2 Time Delivery Rate 06/04/19 98.0 92 19 113/59 98 02:01 (77) 06/03/19 Room Air 21:08 Intake and Output 06/03/19 06/03/19 06/04/19 1515:00 23:00 07:00 IntakeIntake Total 600 ml BalanceBalance 600 ml Exam Constitutional: alert, oriented, well developed Extremities: other (LLE/ wound with erythema and drainage, toes wiggle, silt to the m/l/d/p/fdws) Results Result Diagram: 06/04/19 0651 06/04/19 0651 SHAHLA THACKER MD Jun 04, 2019 08:04
[2019-06-04] MEDS ORDERED: POLYMYXIN B 500000 UNIT INJ ONE (08:13)
[2019-06-04] MEDS: CEFEPIME 1GM/50 ML (PMX) 50 ML IVPB SCH ×2 (08:15→20:46)
[2019-06-04] MEDS ORDERED: BACITRACIN 50000 UNITS INJ ONE (08:38)
[2019-06-04] MEDS ORDERED: VANCOMYCIN 1 GM INJ ONE (08:42)
[2019-06-04] MEDS ORDERED: ROPIVACAINE 0.5 % 30 ML VIAL ONE (09:45)
[2019-06-04] MEDS ORDERED: BACITRACIN/POLYMYXIN 28.35 GM OINT TOP ONE (09:45)
[2019-06-04] MEDS: DEXTROSE 5%-0.45% NACL 1,000 ML IV SCH (09:58)
[2019-06-04] MEDS ORDERED: KETOROLAC 30 MG INJ ONE (10:15)
[2019-06-04] MEDS ORDERED: LIDOCAINE 2% (SDV) 5 ML INJ ONE (10:15)
[2019-06-04] MEDS ORDERED: ROCURONIUM 50 MG INJ ONE (10:15)
[2019-06-04] MEDS ORDERED: NEOSTIGMINE 3 MG/3 ML SYRINGE ONE (10:30)
[2019-06-04] MEDS ORDERED: GLYCOPYRROLATE 0.4 MG INJ ONE (10:31)
--- NOTE | 2019-06-04 10:40 | PAC ---
Date/Time of Note Date/Time of Note DATE: 06/04/19 TIME: 10:39 Post-Anesthesia Notes Post-Anesthesia Note Last documented vital signs Vital Signs Date Temp Pulse Resp B/P (MAP) Pulse Ox O2 O2 Flow FiO2 Time Delivery Rate 06/04/19 98.0 92 19 113/59 98 1040 (77) 06/03/19 Room Air 21:08 Activity: WNL Respiratory function: WNL Cardiovascular function: WNL Mental status: Baseline Pain reasonably controlled: Yes Hydration appropriate: Yes Nausea/Vomiting absent: Yes DEBORAH SERRANO Jun 04, 2019 10:40
[2019-06-04] MEDS ORDERED: MEPERIDINE 25 MG INJ ONE (10:42)
[2019-06-04] MEDS: FENTAnyl 50 MCG/ML VIAL IV PRN ×2 (10:52→11:03)
[2019-06-04] MEDS ORDERED: ONDANSETRON 4 MG INJ IV PRN (11:00)
[2019-06-04] MEDS ORDERED: ALBUTEROL 0.083% (NEB) 2.5 MG/3 ML AMP HHN PRN (11:00)
[2019-06-04] MEDS ORDERED: hydrALAzine 20 MG INJ IV PRN (11:00)
[2019-06-04] MEDS ORDERED: LABETALOL HCL 20MG INJ IV PRN (11:00)
[2019-06-04] MEDS ORDERED: FENTAnyl 50 MCG/ML VIAL IV PRN ×2 (11:00)
[2019-06-04] MEDS ORDERED: OXYCODONE/ACETAMINOPHEN (5/325) TAB PO PRN ×2 (11:00)
[2019-06-04] MEDS ORDERED: MEPERIDINE 25 MG INJ IV PRN (11:00)
[2019-06-04] MEDS ORDERED: HYDROmorphONE 1 MG/5 ML IV SYRINGE IV PRN ×3 (11:00)
[2019-06-04] MEDS ORDERED: DIPHENHYDRAMINE 50 MG INJ IV PRN (11:00)
[2019-06-04] MEDS ORDERED: METOCLOPRAMIDE 10 MG INJ IV PRN (11:00)
--- NOTE | 2019-06-04 11:07 | SIPON ---
Date/Time of Note Date/Time of Note DATE: 06/04/19 TIME: 11:02 Operative Report Preoperative Diagnosis Left Achilles infection Left calcaneus painful hardware Postoperative Diagnosis Left Achilles infection Left calcaneus painful hardware Left calcaneus concern for osteomyelitis Operation/Procedure Performed Left achilles hardware removal Left calcaneus hardware removal Left calcaneus partial bone excision Surgeon Timoteo Thacker MD anesthesia assistant none Anesthesia: general (Dr. Mora. Tourniquet time was 88 minutes at 250 mmHg) Estimated blood loss: minimal Transfusion Required none Specimen Superficial and deep wound cultures, pathology from the Achilles, bone from the calcaneus. Hardware from the calcaneus. Grafts/Implants Vancomycin powder and vancomycin beads into the calcaneal bone Complications none TIMOTEO THACKER MD Jun 04, 2019 11:07
[2019-06-04] MEDS: MULTIVITAMINS THERAPEUTIC TAB PO SCH (11:30)
[2019-06-04] MEDS: CHOLECALCIFEROL 1,000 UNIT TAB PO SCH (11:30)
[2019-06-04] MEDS: ASCORBIC ACID 500 MG TAB PO SCH ×2 (11:30→20:48)
[2019-06-04] MEDS ORDERED: ASCORBIC ACID 500 MG TAB.CHEW PO SCH (12:30)
[2019-06-04] MEDS: morphine 2 MG INJ IV PRN ×2 (13:34→18:04)
--- NOTE | 2019-06-04 15:18 | PN ---
Date/Time of Note Date/Time of Note DATE: 06/04/19 TIME: 15:12 Assessment/Plan VTE Prophylaxis [place] [facility] [place] risk: 3 [place]CD applied [place] [facility] [place] No SCD contraindicated: other Pharmacological prophylaxis: heparin Lines/Catheters IV Catheter Type (from [facility]): Peripheral IV Assessment/Plan Hospital Course Assessment and plan 1. Postop infection of left Achilles. Patient reportedly had repair 8 weeks ago. Continue with antibiotics. Patient status post irrigation and debrideme nt. ID consult to follow. 2. History of left lower extremity DVT. On heparin for now. To be resumed on Eliquis 3. History of diabetes. Continue on insulin. 4. History of dyslipidemia. Start on fish oil. Disposition and plan. Await ID consult. Continue with antibiotic for now. PT per orthopedic surgeon. Discussed POC with Dr. Garrison Result Diagram: 06/04/19 1414 06/04/19 1414 Results 24hrs Laboratory Tests Test 06/03/19 15:24 06/04/19 00:49 06/04/19 05:12 06/04/19 06:51 White Blood Count 13.6 H 8.7 # Red Blood Count 5.78 5.23 Hemoglobin 15.3 13.8 L Hematocrit 45.8 41.7 L Mean Corpuscular Volume 79.2 L 79.7 L Mean Corpuscular 26.5 L 26.4 L Hemoglobin Mean Corpuscular 33.4 33.1 Hemoglobin Concent Red Cell Distribution 12.9 12.9 Width Platelet Count 329 290 Mean Platelet Volume 9.3 9.4 Immature Granulocytes % 0.300 0.600 H Neutrophils % 73.7 59.0 Lymphocytes % 18.8 29.4 Monocytes % 6.3 9.0 Eosinophils % 0.5 1.5 Basophils % 0.4 0.5 Nucleated Red Blood 0.0 0.0 Cells % Immature Granulocytes # 0.040 H 0.050 H Neutrophils # 10.1 H 5.1 Lymphocytes # 2.6 2.5 Monocytes # 0.9 0.8 Eosinophils # 0.1 0.1 Basophils # 0.1 0.0 Nucleated Red Blood 0.0 0.0 Cells # Erythrocyte 4 Sedimentation Rate Prothrombin Time 12.9 Prothrombin Time Ratio 1.0 INR International 0.96 Normalized Ratio Activated 32.5 Partial Thromboplast Time Sodium Level 141 142 Potassium Level 3.9 4.0 Chloride Level 105 107 Carbon Dioxide Level 25 25 Anion Gap 11 10 Blood Urea Nitrogen 11 10 Creatinine 0.66 0.75 Est Glomerular Filtrat > 60 > 60 Rate mL/min Glucose Level 185 173 Calcium Level 9.4 8.6 C-Reactive Protein 3.1 H Bedside Glucose 218 195 Hemoglobin A1c 7.9 H Phosphorus Level 3.9 Magnesium Level 2.0 Total Bilirubin 0.7 Direct Bilirubin 0.00 Indirect Bilirubin 0.7 Aspartate Amino 37 Transf (AST/SGOT) Alanine 81 H Aminotransferase (ALT/SG PT) Alkaline Phosphatase 85 Total Protein 7.4 Albumin 4.1 Globulin 3.30 H Albumin/Globulin Ratio 1.24 Triglycerides Level 117 Cholesterol Level 111 LDL Cholesterol, 66 Calculated HDL Cholesterol 22 L Cholesterol/HDL Ratio 5.0 Test 06/04/19 12:25 06/04/19 14:14 Bedside Glucose 187 White Blood Count 11.4 #H Red Blood Count 5.02 Hemoglobin 13.2 L Hematocrit 40.4 L Mean Corpuscular Volume 80.5 L Mean Corpuscular 26.3 L Hemoglobin Mean Corpuscular 32.7 Hemoglobin Concent Red Cell Distribution 13.0 Width Platelet Count 274 Mean Platelet Volume 9.6 Immature Granulocytes % 0.400 Neutrophils % 72.7 Lymphocytes % 19.0 Monocytes % 6.7 Eosinophils % 0.7 Basophils % 0.5 Nucleated Red Blood 0.0 Cells % Immature Granulocytes # 0.040 H Neutrophils # 8.3 H Lymphocytes # 2.2 Monocytes # 0.8 Eosinophils # 0.1 Basophils # 0.1 Nucleated Red Blood 0.0 Cells # Sodium Level 143 Potassium Level 3.6 Chloride Level 112 H Carbon Dioxide Level 25 Anion Gap 6 Blood Urea Nitrogen 9 Creatinine 0.64 Est Glomerular Filtrat > 60 Rate mL/min Glucose Level 144 Calcium Level 7.7 L Total Bilirubin 0.6 Direct Bilirubin 0.00 Indirect Bilirubin 0.6 Aspartate Amino 44 Transf (AST/SGOT) Alanine 85 H Aminotransferase (ALT/SG PT) Alkaline Phosphatase 77 C-Reactive Protein 4.4 H Total Protein 6.5 Albumin 3.4 Globulin 3.10 Albumin/Globulin Ratio 1.09 Prealbumin 16.3 L Subjective 24 Hr Interval Summary Free Text/Dictation patient reports good pain control with oral analgesics. Exam/Review of Systems Exam Vitals Vital Signs Date Temp Pulse Resp B/P (MAP) Pulse Ox O2 O2 Flow FiO2 Time Delivery Rate 06/04/19 98.0 85 18 113/58 95 Room Air 14:54 (76) 06/04/19 3.0 11:59 Intake and Output 06/03/19 06/03/19 06/04/19 1414:59 22:59 06:59 IntakeIntake Total 600 ml BalanceBalance 600 ml Constitutional: alert, oriented Psych: nl mood/affect Head: normocephalic Eyes: nl conjunctiva Neck: supple, non-tender Respiratory: clear to auscultation Cardiovascular: regular rate and rhythm Gastrointestinal: soft, non-tender Musculoskeletal: other (left foot in dressing ) Neurological: SPONGE HOOKER II-XII intact, nl mental status, nl speech Results Results 24hrs Laboratory Tests Test 06/03/19 15:24 06/04/19 00:49 06/04/19 05:12 06/04/19 06:51 White Blood Count 13.6 H 8.7 # Red Blood Count 5.78 5.23 Hemoglobin 15.3 13.8 L Hematocrit 45.8 41.7 L Mean Corpuscular Volume 79.2 L 79.7 L Mean Corpuscular 26.5 L 26.4 L Hemoglobin Mean Corpuscular 33.4 33.1 Hemoglobin Concent Red Cell Distribution 12.9 12.9 Width Platelet Count 329 290 Mean Platelet Volume 9.3 9.4 Immature Granulocytes % 0.300 0.600 H Neutrophils % 73.7 59.0 Lymphocytes % 18.8 29.4 Monocytes % 6.3 9.0 Eosinophils % 0.5 1.5 Basophils % 0.4 0.5 Nucleated Red Blood 0.0 0.0 Cells % Immature Granulocytes # 0.040 H 0.050 H Neutrophils # 10.1 H 5.1 Lymphocytes # 2.6 2.5 Monocytes # 0.9 0.8 Eosinophils # 0.1 0.1 Basophils # 0.1 0.0 Nucleated Red Blood 0.0 0.0 Cells # Erythrocyte 4 Sedimentation Rate Prothrombin Time 12.9 Prothrombin Time Ratio 1.0 INR International 0.96 Normalized Ratio Activated 32.5 Partial Thromboplast Time Sodium Level 141 142 Potassium Level 3.9 4.0 Chloride Level 105 107 Carbon Dioxide Level 25 25 Anion Gap 11 10 Blood Urea Nitrogen 11 10 Creatinine 0.66 0.75 Est Glomerular Filtrat > 60 > 60 Rate mL/min Glucose Level 185 173 Calcium Level 9.4 8.6 C-Reactive Protein 3.1 H Bedside Glucose 218 195 Hemoglobin A1c 7.9 H Phosphorus Level 3.9 Magnesium Level 2.0 Total Bilirubin 0.7 Direct Bilirubin 0.00 Indirect Bilirubin 0.7 Aspartate Amino 37 Transf (AST/SGOT) Alanine 81 H Aminotransferase (ALT/SG PT) Alkaline Phosphatase 85 Total Protein 7.4 Albumin 4.1 Globulin 3.30 H Albumin/Globulin Ratio 1.24 Triglycerides Level 117 Cholesterol Level 111 LDL Cholesterol, 66 Calculated HDL Cholesterol 22 L Cholesterol/HDL Ratio 5.0 Test 06/04/19 12:25 06/04/19 14:14 Bedside Glucose 187 White Blood Count 11.4 #H Red Blood Count 5.02 Hemoglobin 13.2 L Hematocrit 40.4 L Mean Corpuscular Volume 80.5 L Mean Corpuscular 26.3 L Hemoglobin Mean Corpuscular 32.7 Hemoglobin Concent Red Cell Distribution 13.0 Width Platelet Count 274 Mean Platelet Volume 9.6 Immature Granulocytes % 0.400 Neutrophils % 72.7 Lymphocytes % 19.0 Monocytes % 6.7 Eosinophils % 0.7 Basophils % 0.5 Nucleated Red Blood 0.0 Cells % Immature Granulocytes # 0.040 H Neutrophils # 8.3 H Lymphocytes # 2.2 Monocytes # 0.8 Eosinophils # 0.1 Basophils # 0.1 Nucleated Red Blood 0.0 Cells # Sodium Level 143 Potassium Level 3.6 Chloride Level 112 H Carbon Dioxide Level 25 Anion Gap 6 Blood Urea Nitrogen 9 Creatinine 0.64 Est Glomerular Filtrat > 60 Rate mL/min Glucose Level 144 Calcium Level 7.7 L Total Bilirubin 0.6 Direct Bilirubin 0.00 Indirect Bilirubin 0.6 Aspartate Amino 44 Transf (AST/SGOT) Alanine 85 H Aminotransferase (ALT/SG PT) Alkaline Phosphatase 77 C-Reactive Protein 4.4 H Total Protein 6.5 Albumin 3.4 Globulin 3.10 Albumin/Globulin Ratio 1.09 Prealbumin 16.3 L Medications Medication Current Medications IV Flush (NS 3 ml) 3 ml PER PROTOCOL IV ; Start 06/03/19 at 21:30 Ondansetron HCl (Zofran Inj) 4 mg Q6H PRN IV NAUSEA/VOMITING; Start 06/03/19 at 21:30 Acetaminophen/ Hydrocodone Bitart ([place] (5/325)) 1 tab Q6H PRN PO .MOD PAIN 4- 6; Start 06/03/19 at 21:30 Morphine Sulfate (morphine) 2 mg Q4H PRN IV .SEVERE PAIN 7-10 Last administered on 06/04/19at 13:34; Admin Dose 2 MG; Start 06/03/19 at 21:30 Albuterol/ Ipratropium (Duoneb) 3 ml Q2H RESP THERAPY PRN HHN SHORTNESS OF BREATH; Start 06/03/19 at 21:30 Atorvastatin Calcium (Lipitor) 10 mg QHS PO ; Start 06/04/19 at 21:00 Cefepime HCl 50 ml @ 100 mls/hr Q12 IVPB ; Start 06/04/19 at 09:00 Vancomycin HCl (Vanco Iv Per Pharmacy) VANCOMYCIN PER PHARMACY PER PROTOCOL XX ; Start 06/04/19 at 06:00 Vancomycin HCl 250 ml @ 125 mls/hr Q8H IVPB Last administered on 06/04/19at 13:34; Admin Dose 125 MLS/HR; Start 06/04/19 at 06:00 Miscellaneous Information 1 ea NOTE XX ; Start 06/04/19 at 01:00 Glucose (Glutose) 15 gm Q15M PRN PO DECREASED GLUCOSE; Start 06/04/19 at 01:00 Glucose (Glutose) 22.5 gm Q15M PRN PO DECREASED GLUCOSE; Start 06/04/19 at 01:00 Dextrose (D50w Syringe) 25 ml Q15M PRN IV DECREASED GLUCOSE; Start 06/04/19 at 01:00 Dextrose (D50w Syringe) 50 ml Q15M PRN IV DECREASED GLUCOSE; Start 06/04/19 at 01:00 Glucagon (Glucagen) 1 mg Q15M PRN IM DECREASED GLUCOSE; Start 06/04/19 at 01:00 Glucose (Glutose) 15 gm Q15M PRN BUCCAL DECREASED GLUCOSE; Start 06/04/19 at 01:00 Hydromorphone HCl (Dilaudid) 0.2 mg PACU PRN IV MILD PAIN 1-3; Start 06/04/19 at 11:00; Stop 06/04/19 at 19:00 Hydromorphone HCl (Dilaudid) 0.4 mg PACU PRN IV MOD PAIN 4-6 Last administered on 06/04/19at 11:23; Admin Dose 0.4 MG; Start 06/04/19 at 11:00; Stop 06/04/19 at 19:00 Hydromorphone HCl (Dilaudid) 0.6 mg PACU PRN IV SEVERE PAIN 7-10; Start 06/04/19 at 11:00; Stop 06/04/19 at 19:00 Fentanyl (Sublimaze) 25 mcg PACU ORDER PRN IV MILD PAIN 1-3; Start 06/04/19 at 11:00; Stop 06/04/19 at 19:00 Fentanyl (Sublimaze) 50 mcg PACU ORDER PRN IV MOD PAIN 4-6 Last administered on 06/04/19at 11:03; Admin Dose 50 MCG; Start 06/04/19 at 11:00; Stop 06/04/19 at 19:00 Fentanyl (Sublimaze) 75 mcg PACU ORDER PRN IV SEVERE PAIN 7-10; Start 06/04/19 at 11:00; Stop 06/04/19 at 19:00 Oxycodone/ Acetaminophen (Percocet (5/ 325)) 1 tab PACU ORDER PRN PO .PAIN 1-5; Start 06/04/19 at 11:00; Stop 06/04/19 at 19:00 Oxycodone/ Acetaminophen (Percocet (5/ 325)) 2 tab PACU ORDER PRN PO .PAIN 6-10; Start 06/04/19 at 11:00; Stop 06/04/19 at 19:00 Ondansetron HCl (Zofran Inj) 4 mg PACU ORDER PRN IV NAUSEA/VOMITING Last administered on 06/04/19at 10:52; Admin Dose 4 MG; Start 06/04/19 at 11:00; Stop 06/04/19 at 19:00 Metoclopramide HCl (Reglan) 10 mg PACU ORDER PRN IV NAUSEA/VOMITING; Start 06/04/19 at 11:00; Stop 06/04/19 at 19:00 Labetalol HCl (Labetalol) 5 mg PACU ORDER PRN IV HIGH BLOOD PRESSURE; Start 06/04/19 at 11:00; Stop 06/04/19 at 19:00 Hydralazine HCl (Apresoline) 5 mg PACU ORDER PRN IV HIGH BLOOD PRESSURE; Start 06/04/19 at 11:00; Stop 06/04/19 at 19:00 Albuterol (Proventil 0.083% (Neb)) 2.5 mg PACU ORDER PRN HHN .WHEEZING; Start 06/04/19 at 11:00; Stop 06/04/19 at 19:00 Meperidine HCl (Demerol) 25 mg PACU ORDER PRN IV .RIGORS Last administered on 06/04/19at 10:44; Admin Dose 25 MG; Start 06/04/19 at 11:00; Stop 06/04/19 at 19:00 Diphenhydramine HCl (Benadryl) 25 mg PACU ORDER PRN IV .PRURITUS; Start 06/04/19 at 11:00; Stop 06/04/19 at 19:00 Miscellaneous Information (*Rx Drug Level Order Reminder*) VANCO TROUGH @ 0,500 ON... 0500 ONCE XX ; Start 06/05/19 at 05:00; Stop 06/05/19 at 05:01 Acetaminophen/ Hydrocodone Bitart ([place] (5/325)) 1 tab Q4H PRN PO MODERATE PAIN LEVEL 4-6; Start 06/04/19 at 11:30 Cholecalciferol (Vitamin D) 5,000 unit DAILY PO ; Start 06/04/19 at 11:30 Multivitamins Therapeutic (Theragran) 1 tab DAILY PO ; Start 06/04/19 at 11:30 Ascorbic Acid (Vitamin C) 1,000 mg BID PO ; Start 06/04/19 at 11:30 Diagnostic Test (Pha) (Accu-Chek) 1 ea 02 XX ; Start 06/05/19 at 02:00 Insulin Aspart (Novolog Insulin Pen) NOVOLOG *MILD* ALGORITHM WITH MEALS BEDTIME SC Last administered on 06/04/19at 12:37; Admin Dose 2 UNIT; Start 06/04/19 at 12:00 PINEDA LINK NP Jun 04, 2019 15:18
--- NOTE | 2019-06-04 15:41 | CONS ---
DATE OF ADMISSION: 06/03/2019 DATE OF CONSULTATION: 06/04/2019 TYPE OF CONSULTATION: Infectious disease. REASON FOR CONSULTATION: Antibiotic management. HISTORY OF PRESENT ILLNESS: Steve Kruse is a 43-year-old male who presented to the Emergency Room on the , sent by clinic for left foot surgical wound opening and diabetes. The patient had a wound d ehiscence of left Achilles tendon. He had surgical repair about 2 months ago and states that over last few days, he had wound dehiscence, erythema to the skin and purulent discharge. He was referr ed from the clinic for evaluation. The patient had left Achilles tendon rupture and surgical repair 2 months ago, lower extremity deep venous thrombosis, diabetes mellitus. PAST SURGICAL HISTORY: None. PAST MEDICAL HISTORY: He has a history of hypercholesterolemia, diabetes, DVT left lower extremity. FAMILY HISTORY: Noncontributory. SOCIAL HISTORY: Does not smoke, drink or abuse drugs. ALLERGIES: None to penicillin, sulfa or foods. MEDICATIONS: Per chart. REVIEW OF SYSTEMS: As per HPI. PHYSICAL EXAMINATION: GENERAL: The patient is a well-developed, well-nourished male, awake, responsive, in no acute distre ss. VITAL SIGNS: Stable. He is afebrile. SKIN: Without generalized rash. HEENT: Within normal limits. NECK: Supple. LYMPH NODES: None palpable. CHEST: Decreased breath sounds at the bases. HEART: Without murmur or gallop. ABDOMEN: Soft, nontender, without organosplenomegaly or masses. EXTREMITIES: Mild wound dehiscence of the surgical site over the left Achilles tendon. There are so me inflammatory changes and granulation tissue around the incision with mild serosanguineous discharg e. ANCILLARY LABORATORY DATA: White count of 13.6, H and H 15.3 and 45.8, platelet count 329,000. BUN and creatinine 11/0.66 with 74% neutrophils. Random glucose was 185. Patient was started on vancomy anel and Zosyn. HOSPITAL COURSE: Dr. Timoteo Lobo was consulted and recommended admission for surgical washout today. Patient had left Achilles hardware removed, left calcaneus hardware removed, left calcaneus partial bone excision. ASSESSMENT: Superficial and deep wound culture. Pathology from the Achilles bone from the calcaneus , hardware from the calcaneus, vancomycin powder and vancomycin beads into the calcaneal bone without complications. Patient is currently on vancomycin and Zosyn. He is now on cefepime and vancomycin. The wound from the 3rd grew out gram-negative rods, ankle MRI from the 3rd showed complete versus n ear complete tear of the Achilles tendon with about 9 mm retraction. Four or five wound cultures wer e done during the surgery and we will await the results. I will dictate my findings to Dr. Timoteo tinajero. Dictated By: HERNAN COLLINS MD, JD/KENDRICK Conf#: [id number] DID#: [id number] CC: JENNIFER SHEA MD;*EndCC*
[2019-06-04] MEDS ORDERED: POLYMYXIN/BACITRACIN 1L IRRIG ONE (19:10)
--- NOTE | 2019-06-04 19:46 | CONS ---
Assessment/Plan Assessment/Plan Hospital Course (Demo Recall) ID PROGRESS NOTE CURRENT ABX: DAY # =>Vanco IV + Cefepime 06/04/19 1414 06/04/19 1414 24H INTERVAL SUMMARY * POD #1 -> s/p 06/03/19 LEFT Achilles/calcaneus hardware removal w/partial bone excision * Doing well post-operatively, WBC down, no fever, ESR 4 * Resting in bed, TV on, non-weight bearing status post-op, no complaints DIAGNOSTIC IMAGING * 06/03/19 LEFT LEG US: No sonographic evidence for deep venous thrombosis. * 06/03/19 MRI ANKLE: IMPRESSION: Complete versus near-complete tear of the Achilles tendon, with about 9 mm retraction. MICRO * 06/03/19 (+) WOUND CULTURE Preliminary Organism 1 GRAM NEGATIVE OLGA LIDIA QUANTITY 2+ PHYSICAL EXAMINATION: GENERAL: VSS, NAD HEENT: AT, NC, NECK: Supple, CHEST: Rise symmetrical HEART: Pulse RRR ABDOMEN: Benign EXTREMITIES: Warm, dry == left lower ext dsg c/d/i SKIN: No rash, no diaphoresis ID ASSESSMENT 43 yo M admit with: 1. SIRS / early sepsis w/low grade fevers, mild tachycardia, leukocytosis on admission due to #2 2. Complex LEFT LOWER EXTREMITY FOOT/ANKLE infection =>~ 7-1/2 weeks status post left Achilles repair * Left Achilles infection * Left calcaneus painful hardware * Left calcaneus concern for osteomyelitis - ESR @ 4 * POD #1 -> s/p 06/03/19 LEFT Achilles/calcaneus hardware removal w/partial bone excision 3. History of left lower extremity DVT. On heparin for now. To be resumed on Eliquis 4. DMT2 w/complications * A1C 7.9% 5. HLD 6. Obesity ABX ALLERGIES: KNDA INVASIVES: PIV CURRENT ABX: DAY # =>>Vanco IV + Cefepime ID RECOMMENDATIONS/PLAN: 1. Continue current ABX -awaiting GNR wound Cx pending 2. Thanks, will follow Consultation Date/Type/Reason Admit Date/Time Jun 03, 2019 at 19:13 Initial Consult Date Date/Time of Note DATE: 06/04/19 TIME: 19:31 Exam/Review of Systems Exam Vitals Vital Signs Date Temp Pulse Resp B/P (MAP) Pulse Ox O2 O2 Flow FiO2 Time Delivery Rate 06/04/19 98.0 85 18 113/58 95 Room Air 14:54 (76) 06/04/19 3.0 11:59 Intake and Output 06/03/19 06/03/19 06/04/19 1515:00 23:00 07:00 IntakeIntake Total 600 ml OutputOutput Total 300 ml BalanceBalance 600 ml -300 ml Results Result Diagram: 06/04/19 1414 06/04/19 1414 Results 24hrs Laboratory Tests Test 06/04/19 00:49 06/04/19 05:12 06/04/19 06:51 06/04/19 12:25 Bedside Glucose 218 195 187 White Blood Count 8.7 # Red Blood Count 5.23 Hemoglobin 13.8 L Hematocrit 41.7 L Mean Corpuscular Volume 79.7 L Mean Corpuscular 26.4 L Hemoglobin Mean Corpuscular 33.1 Hemoglobin Concent Red Cell Distribution 12.9 Width Platelet Count 290 Mean Platelet Volume 9.4 Immature Granulocytes % 0.600 H Neutrophils % 59.0 Lymphocytes % 29.4 Monocytes % 9.0 Eosinophils % 1.5 Basophils % 0.5 Nucleated Red Blood 0.0 Cells % Immature Granulocytes # 0.050 H Neutrophils # 5.1 Lymphocytes # 2.5 Monocytes # 0.8 Eosinophils # 0.1 Basophils # 0.0 Nucleated Red Blood 0.0 Cells # Sodium Level 142 Potassium Level 4.0 Chloride Level 107 Carbon Dioxide Level 25 Anion Gap 10 Blood Urea Nitrogen 10 Creatinine 0.75 Est Glomerular Filtrat > 60 Rate mL/min Glucose Level 173 Hemoglobin A1c 7.9 H Calcium Level 8.6 Phosphorus Level 3.9 Magnesium Level 2.0 Total Bilirubin 0.7 Direct Bilirubin 0.00 Indirect Bilirubin 0.7 Aspartate Amino 37 Transf (AST/SGOT) Alanine 81 H Aminotransferase (ALT/SG PT) Alkaline Phosphatase 85 Total Protein 7.4 Albumin 4.1 Globulin 3.30 H Albumin/Globulin Ratio 1.24 Triglycerides Level 117 Cholesterol Level 111 LDL Cholesterol, 66 Calculated HDL Cholesterol 22 L Cholesterol/HDL Ratio 5.0 Test 06/04/19 14:14 06/04/19 17:21 White Blood Count 11.4 #H Red Blood Count 5.02 Hemoglobin 13.2 L Hematocrit 40.4 L Mean Corpuscular Volume 80.5 L Mean Corpuscular 26.3 L Hemoglobin Mean Corpuscular 32.7 Hemoglobin Concent Red Cell Distribution 13.0 Width Platelet Count 274 Mean Platelet Volume 9.6 Immature Granulocytes % 0.400 Neutrophils % 72.7 Lymphocytes % 19.0 Monocytes % 6.7 Eosinophils % 0.7 Basophils % 0.5 Nucleated Red Blood 0.0 Cells % Immature Granulocytes # 0.040 H Neutrophils # 8.3 H Lymphocytes # 2.2 Monocytes # 0.8 Eosinophils # 0.1 Basophils # 0.1 Nucleated Red Blood 0.0 Cells # Sodium Level 143 Potassium Level 3.6 Chloride Level 112 H Carbon Dioxide Level 25 Anion Gap 6 Blood Urea Nitrogen 9 Creatinine 0.64 Est Glomerular Filtrat > 60 Rate mL/min Glucose Level 144 Calcium Level 7.7 L Total Bilirubin 0.6 Direct Bilirubin 0.00 Indirect Bilirubin 0.6 Aspartate Amino 44 Transf (AST/SGOT) Alanine 85 H Aminotransferase (ALT/SG PT) Alkaline Phosphatase 77 C-Reactive Protein 4.4 H Total Protein 6.5 Albumin 3.4 Globulin 3.10 Albumin/Globulin Ratio 1.09 Prealbumin 16.3 L Bedside Glucose 155 Medications Medication Current Medications IV Flush (NS 3 ml) 3 ml PER PROTOCOL IV ; Start 06/03/19 at 21:30 Ondansetron HCl (Zofran Inj) 4 mg Q6H PRN IV NAUSEA/VOMITING; Start 06/03/19 at 21:30 Acetaminophen/ Hydrocodone Bitart ([place] (5/325)) 1 tab Q6H PRN PO .MOD PAIN 4- 6; Start 06/03/19 at 21:30 Morphine Sulfate (morphine) 2 mg Q4H PRN IV .SEVERE PAIN 7-10 Last administered on 06/04/19at 18:04; Admin Dose 2 MG; Start 06/03/19 at 21:30 Albuterol/ Ipratropium (Duoneb) 3 ml Q2H RESP THERAPY PRN HHN SHORTNESS OF BREATH; Start 06/03/19 at 21:30 Atorvastatin Calcium (Lipitor) 10 mg QHS PO ; Start 06/04/19 at 21:00 Cefepime HCl 50 ml @ 100 mls/hr Q12 IVPB ; Start 06/04/19 at 09:00 Vancomycin HCl (Vanco Iv Per Pharmacy) VANCOMYCIN PER PHARMACY PER PROTOCOL XX ; Start 06/04/19 at 06:00 Vancomycin HCl 250 ml @ 125 mls/hr Q8H IVPB Last administered on 06/04/19at 13:34; Admin Dose 125 MLS/HR; Start 06/04/19 at 06:00 Miscellaneous Information 1 ea NOTE XX ; Start 06/04/19 at 01:00 Glucose (Glutose) 15 gm Q15M PRN PO DECREASED GLUCOSE; Start 06/04/19 at 01:00 Glucose (Glutose) 22.5 gm Q15M PRN PO DECREASED GLUCOSE; Start 06/04/19 at 01:00 Dextrose (D50w Syringe) 25 ml Q15M PRN IV DECREASED GLUCOSE; Start 06/04/19 at 01:00 Dextrose (D50w Syringe) 50 ml Q15M PRN IV DECREASED GLUCOSE; Start 06/04/19 at 01:00 Glucagon (Glucagen) 1 mg Q15M PRN IM DECREASED GLUCOSE; Start 06/04/19 at 01:00 Glucose (Glutose) 15 gm Q15M PRN BUCCAL DECREASED GLUCOSE; Start 06/04/19 at 01: 00 Miscellaneous Information (*Rx Drug Level Order Reminder*) VANCO TROUGH @ 0,500 ON... 0500 ONCE XX ; Start 06/05/19 at 05:00; Stop 06/05/19 at 05:01 Acetaminophen/ Hydrocodone Bitart ([place] (5/325)) 1 tab Q4H PRN PO MODERATE PAIN LEVEL 4-6; Start 06/04/19 at 11:30 Cholecalciferol (Vitamin D) 5,000 unit DAILY PO ; Start 06/04/19 at 11:30 Multivitamins Therapeutic (Theragran) 1 tab DAILY PO ; Start 06/04/19 at 11:30 Ascorbic Acid (Vitamin C) 1,000 mg BID PO ; Start 06/04/19 at 11:30 Diagnostic Test (Pha) (Accu-Chek) 1 ea 02 XX ; Start 06/05/19 at 02:00 Insulin Aspart (Novolog Insulin Pen) NOVOLOG *MILD* ALGORITHM WITH MEALS BEDTIME SC Last administered on 06/04/19at 17:23; Admin Dose 1 UNIT; Start 06/04/19 at 12:00 Heparin Sodium (Porcine) (Heparin (5000 Units/1ml)) 5,000 unit BID SC ; Start 06/04/19 at 21:00 Fish Oil (Fish Oil) 1,000 mg BID PO ; Start 06/04/19 at 21:00 BRENDAN CHERY NP Jun 04, 2019 19:42
[2019-06-04] MEDS: HYDROCODONE/APAP (5/325) TAB PO PRN (20:00)
[2019-06-04] MEDS ORDERED: HYDROmorphONE 1 MG/ML SYG ONE (20:36)
[2019-06-04] MEDS: FISH OIL 1,000 MG CAP PO SCH (20:48)
[2019-06-04] MEDS: ATORVASTATIN 10 MG TAB PO SCH (20:48)
[2019-06-04] MEDS: HEPARIN 5,000 UNIT/1 ML VIAL SC SCH (20:49)
[2019-06-04] MEDS ORDERED: HYDROmorphONE 1 MG/ML SYG IV ONE (21:00)
[2019-06-04] MEDS: HYDROmorphONE 1 MG/ML SYG IV PRN (23:36)
[2019-06-05 02:00] VITALS: BP 117/60; PULSE 90; RESP 16
[2019-06-05] MEDS: ACCU-CHEK XX SCH (02:00)
[2019-06-05] MEDS: HYDROmorphONE 1 MG/ML SYG IV PRN ×5 (05:11→21:33)
[2019-06-05] MEDS: VANCOMYCIN 1 GM 250 ML IVPB SCH ×3 (06:49→22:05)
[2019-06-05 07:50] VITALS: BP 104/62; PULSE 89; RESP 18
[2019-06-05] MEDS: MULTIVITAMINS THERAPEUTIC TAB PO SCH (08:24)
[2019-06-05] MEDS: CHOLECALCIFEROL 1,000 UNIT TAB PO SCH (08:24)
[2019-06-05] MEDS: FISH OIL 1,000 MG CAP PO SCH ×2 (08:24→21:02)
[2019-06-05] MEDS: CEFEPIME 1GM/50 ML (PMX) 50 ML IVPB SCH ×2 (08:24→21:02)
[2019-06-05] MEDS: ASCORBIC ACID 500 MG TAB PO SCH ×2 (08:24→21:02)
[2019-06-05] MEDS: HEPARIN 5,000 UNIT/1 ML VIAL SC SCH (08:25)
[2019-06-05] MEDS: INSULIN ASPART [NOVOLOG] 3 ML PEN SC SCH ×4 (08:26→21:09)
[2019-06-05 13:50] VITALS: BP 98/62; PULSE 89; RESP 18
--- NOTE | 2019-06-05 14:54 | PN ---
Date/Time of Note Date/Time of Note DATE: 06/05/19 TIME: 14:51 Assessment/Plan VTE Prophylaxis Risk score (from Ns)>0 risk: 5 SCD applied (from Ns): No SCD contraindicated: other Pharmacological prophylaxis: heparin Lines/Catheters IV Catheter Type (from [facility]): Peripheral IV Assessment/Plan Hospital Course Assessment and plan 1. Postop infection of left Achilles. Patient reportedly had repair 8 weeks ago. Continue with antibiotics. Patient status post irrigation and debrideme nt. ID consult following. culture showing K.PNEUMONIAE SSP PNEUMONIAE. PT per surgeon 2. History of left lower extremity DVT. On heparin for now. 3. History of diabetes. Continue on insulin. 4. History of dyslipidemia. Start on fish oil. Disposition and plan. PT per surgeon. continue abx. monitor inhouse. Discussed POC with Dr. Garrison Result Diagram: 06/05/19 0503 06/05/19 0503 Results 24hrs Laboratory Tests Test 06/04/19 17:21 06/04/19 20:43 06/05/19 05:03 06/05/19 07:59 Bedside Glucose 155 157 181 White Blood Count 10.9 H Red Blood Count 5.13 Hemoglobin 13.3 L Hematocrit 41.9 L Mean Corpuscular Volume 81.7 L Mean Corpuscular 25.9 L Hemoglobin Mean Corpuscular 31.7 L Hemoglobin Concent Red Cell Distribution 13.1 Width Platelet Count 278 Mean Platelet Volume 9.6 Immature Granulocytes % 0.500 H Neutrophils % 66.4 Lymphocytes % 23.4 Monocytes % 8.4 Eosinophils % 0.9 Basophils % 0.4 Nucleated Red Blood 0.0 Cells % Immature Granulocytes # 0.060 H Neutrophils # 7.3 Lymphocytes # 2.6 Monocytes # 0.9 Eosinophils # 0.1 Basophils # 0.0 Nucleated Red Blood 0.0 Cells # Sodium Level 142 Potassium Level 4.2 Chloride Level 104 Carbon Dioxide Level 29 Anion Gap 9 Blood Urea Nitrogen 10 Creatinine 0.95 Est Glomerular Filtrat > 60 Rate mL/min Glucose Level 169 Calcium Level 8.9 Vancomycin Level Trough 13.4 Test 06/05/19 12:07 Bedside Glucose 163 Subjective 24 Hr Interval Summary Free Text/Dictation Reports pain on left lower extremity. little better Exam/Review of Systems Exam Vitals Vital Signs Date Temp Pulse Resp B/P (MAP) Pulse Ox O2 O2 Flow FiO2 Time Delivery Rate 06/05/19 98.1 89 18 98/62 (50) 90 13:50 06/04/19 Room Air 14:54 06/04/19 3.0 11:59 Intake and Output 06/04/19 06/04/19 06/05/19 1515:00 23:00 07:00 IntakeIntake Total 1750 ml 720 ml 250 ml OutputOutput Total 10 ml 650 ml BalanceBalance 1740 ml 70 ml 250 ml Exam Constitutional: alert, oriented Psych: nl mood/affect Head: normocephalic Eyes: nl conjunctiva Neck: supple, non-tender Respiratory: clear to auscultation Cardiovascular: regular rate and rhythm Gastrointestinal: soft, non-tender Musculoskeletal: other (left foot in dressing ) Neurological: BOTTLE FILLER II-XII intact, nl mental status, nl speech Results Results 24hrs Laboratory Tests Test 06/04/19 17:21 06/04/19 20:43 06/05/19 05:03 06/05/19 07:59 Bedside Glucose 155 157 181 White Blood Count 10.9 H Red Blood Count 5.13 Hemoglobin 13.3 L Hematocrit 41.9 L Mean Corpuscular Volume 81.7 L Mean Corpuscular 25.9 L Hemoglobin Mean Corpuscular 31.7 L Hemoglobin Concent Red Cell Distribution 13.1 Width Platelet Count 278 Mean Platelet Volume 9.6 Immature Granulocytes % 0.500 H Neutrophils % 66.4 Lymphocytes % 23.4 Monocytes % 8.4 Eosinophils % 0.9 Basophils % 0.4 Nucleated Red Blood 0.0 Cells % Immature Granulocytes # 0.060 H Neutrophils # 7.3 Lymphocytes # 2.6 Monocytes # 0.9 Eosinophils # 0.1 Basophils # 0.0 Nucleated Red Blood 0.0 Cells # Sodium Level 142 Potassium Level 4.2 Chloride Level 104 Carbon Dioxide Level 29 Anion Gap 9 Blood Urea Nitrogen 10 Creatinine 0.95 Est Glomerular Filtrat > 60 Rate mL/min Glucose Level 169 Calcium Level 8.9 Vancomycin Level Trough 13.4 Test 06/05/19 12:07 Bedside Glucose 163 Medications Medication Current Medications IV Flush (NS 3 ml) 3 ml PER PROTOCOL IV ; Start 06/03/19 at 21:30 Ondansetron HCl (Zofran Inj) 4 mg Q6H PRN IV NAUSEA/VOMITING; Start 06/03/19 at 21:30 Acetaminophen/ Hydrocodone Bitart ([place] (5/325)) 1 tab Q6H PRN PO .MOD PAIN 4- 6; Start 06/03/19 at 21:30 Morphine Sulfate (morphine) 2 mg Q4H PRN IV .SEVERE PAIN 7-10 Last administered on 06/04/19at 18:04; Admin Dose 2 MG; Start 06/03/19 at 21:30 Albuterol/ Ipratropium (Duoneb) 3 ml Q2H RESP THERAPY PRN HHN SHORTNESS OF BREATH; Start 06/03/19 at 21:30 Atorvastatin Calcium (Lipitor) 10 mg QHS PO Last administered on 06/04/19at 20:48; Admin Dose 10 MG; Start 06/04/19 at 21:00 Cefepime HCl 50 ml @ 100 mls/hr Q12 IVPB Last administered on 06/05/19at 08:24; Admin Dose 100 MLS/HR; Start 06/04/19 at 09:00 Vancomycin HCl (Vanco Iv Per Pharmacy) VANCOMYCIN PER PHARMACY PER PROTOCOL XX ; Start 06/04/19 at 06:00 Vancomycin HCl 250 ml @ 125 mls/hr Q8H IVPB Last administered on 06/05/19at 14:40; Admin Dose 125 MLS/HR; Start 06/04/19 at 06:00 Miscellaneous Information 1 ea NOTE XX ; Start 06/04/19 at 01:00 Glucose (Glutose) 15 gm Q15M PRN PO DECREASED GLUCOSE; Start 06/04/19 at 01:00 Glucose (Glutose) 22.5 gm Q15M PRN PO DECREASED GLUCOSE; Start 06/04/19 at 01:00 Dextrose (D50w Syringe) 25 ml Q15M PRN IV DECREASED GLUCOSE; Start 06/04/19 at 01:00 Dextrose (D50w Syringe) 50 ml Q15M PRN IV DECREASED GLUCOSE; Start 06/04/19 at 01:00 Glucagon (Glucagen) 1 mg Q15M PRN IM DECREASED GLUCOSE; Start 06/04/19 at 01:00 Glucose (Glutose) 15 gm Q15M PRN BUCCAL DECREASED GLUCOSE; Start 06/04/19 at 01:00 Acetaminophen/ Hydrocodone Bitart ([place] (5/325)) 1 tab Q4H PRN PO MODERATE PAIN LEVEL 4-6 Last administered on 06/04/19at 20:00; Admin Dose 1 TAB; Start 06/04/19 at 11:30 Cholecalciferol (Vitamin D) 5,000 unit DAILY PO Last administered on 06/05/19 08:24; Admin Dose 5,000 UNIT; Start 06/04/19 at 11:30 Multivitamins Therapeutic (Theragran) 1 tab DAILY PO Last administered on 06/05/19 08:24; Admin Dose 1 TAB; Start 06/04/19 at 11:30 Ascorbic Acid (Vitamin C) 1,000 mg BID PO Last administered on 06/05/19 08:24; Admin Dose 1,000 MG; Start 06/04/19 at 11:30 Diagnostic Test (Pha) (Accu-Chek) 1 ea 02 XX ; Start 06/05/19 at 02:00 Insulin Aspart (Novolog Insulin Pen) NOVOLOG *MILD* ALGORITHM WITH MEALS BEDTIME SC Last administered on 06/05/19 12:09; Admin Dose 1 UNIT; Start 06/04/19 at 12:00 Heparin Sodium (Porcine) (Heparin (5000 Units/1ml)) 5,000 unit BID SC Last administered on 06/05/19 08:25; Admin Dose 5,000 UNIT; Start 06/04/19 at 21:00 Fish Oil (Fish Oil) 1,000 mg BID PO Last administered on 06/05/19 08:24; Admin Dose 1,000 MG; Start 06/04/19 at 21:00 Hydromorphone HCl (Dilaudid) 1 mg Q4H PRN IV SEVERE PAIN LEVEL 7-10 Last administered on 06/05/19 13:17; Admin Dose 1 MG; Start 06/04/19 at 22:30 PINEDA LINK NP Jun 05, 2019 14:54
--- NOTE | 2019-06-05 18:27 | CONS ---
Assessment/Plan Assessment/Plan Hospital Course (Demo Recall) ID PROGRESS NOTE CURRENT ABX: DAY # =>Vanco IV + Cefepime 06/05/19 0503 06/05/19 0503 24H INTERVAL SUMMARY * POD #1 -> s/p 06/04/19 LEFT Achilles/calcaneus hardware removal w/partial bone excision * Pain issues continue -- WBC down, no fever * Non-weight bearing status post-op, no complaints DIAGNOSTIC IMAGING * 06/03/19 LEFT LEG US: No sonographic evidence for deep venous thrombosis. * 06/03/19 MRI ANKLE: IMPRESSION: Complete versus near-complete tear of the Achilles tendon, with about 9 mm retraction. MICRO * * 06/04/19 TISSUE CX from I&D all growing (+)GNR == pending final * 06/03/19 (+) WOUND CULTURE Final Organism 1 K.PNEUMONIAE SSP PNEUMONIAE QUANTITY 2+ K PNE SPP M.I.C. RX --------- --- CEFAZOLIN S CEFOTAXIME S CIPROFLOXACIN <=0.25 S GENTAMICIN <=1 S LEVOFLOXACIN <=0.12 S TOBRAMYCIN <=1 S TRIMETHOPRIM/SULFAMETHOXAZOLE <=20 S PHYSICAL EXAMINATION: GENERAL: VSS, NAD HEENT: AT, NC, NECK: Supple, CHEST: Rise symmetrical HEART: Pulse RRR ABDOMEN: Benign EXTREMITIES: Warm, dry == left lower ext dsg c/d/i SKIN: No rash, no diaphoresis ID ASSESSMENT 43 yo M admit with: 1. SIRS / early sepsis w/low grade fevers, mild tachycardia, leukocytosis on admission due to #2 2. Complex LEFT LOWER EXTREMITY FOOT/ANKLE infection =>~ 7-1/2 weeks status post left Achilles repair * Left Achilles infection * Left calcaneus painful hardware * Left calcaneus concern for osteomyelitis - ESR @ 4 * POD #1 -> s/p 06/04/19 LEFT Achilles/calcaneus hardware removal w/partial bone excision 3. History of left lower extremity DVT. On heparin for now. To be resumed on Eliquis 4. DMT2 w/complications * A1C 7.9% 5. HLD 6. Obesity ABX ALLERGIES: KNDA INVASIVES: PIV CURRENT ABX: DAY # =>>Vanco IV + Cefepime ID RECOMMENDATIONS/PLAN: 1. Continue current ABX -awaiting FINAL GNR wound Cx pending 2. PLEASE ORDER PICC LINE FOR TOMORROW ==> Will request hospitalist to order as I have left the floor 3. D/W APC and Dr. Pickett * --> PLAN is to DC on Ceftriaxone 2gm IV daily x 21 days followed by BACTRIM DS 1TAB PO Q12 w/full glass H20 x 21 days for a total 6 weeks ABX * Please make sure patient has appointment with Dr. Pickett 2-3 weeks post DC . Consultation Date/Type/Reason Admit Date/Time Jun 03, 2019 at 19:13 Initial Consult Date Date/Time of Note DATE: 06/05/19 TIME: 18:23 Exam/Review of Systems Exam Vitals Vital Signs Date Temp Pulse Resp B/P (MAP) Pulse Ox O2 O2 Flow FiO2 Time Delivery Rate 06/05/19 98.1 89 18 98/62 (74) 90 13:50 06/04/19 Room Air 14:54 06/04/19 3.0 11:59 Intake and Output 06/04/19 06/04/19 06/05/19 1414:59 22:59 06:59 IntakeIntake Total 1750 ml 720 ml 250 ml OutputOutput Total 310 ml 650 ml BalanceBalance 1440 ml 70 ml 250 ml Results Result Diagram: 06/05/19 0503 06/05/19 0503 Results 24hrs Laboratory Tests Test 06/04/19 20:43 06/05/19 05:03 06/05/19 07:59 06/05/19 12:07 Bedside Glucose 157 181 163 White Blood Count 10.9 H Red Blood Count 5.13 Hemoglobin 13.3 L Hematocrit 41.9 L Mean Corpuscular Volume 81.7 L Mean Corpuscular 25.9 L Hemoglobin Mean Corpuscular 31.7 L Hemoglobin Concent Red Cell Distribution 13.1 Width Platelet Count 278 Mean Platelet Volume 9.6 Immature Granulocytes % 0.500 H Neutrophils % 66.4 Lymphocytes % 23.4 Monocytes % 8.4 Eosinophils % 0.9 Basophils % 0.4 Nucleated Red Blood 0.0 Cells % Immature Granulocytes # 0.060 H Neutrophils # 7.3 Lymphocytes # 2.6 Monocytes # 0.9 Eosinophils # 0.1 Basophils # 0.0 Nucleated Red Blood 0.0 Cells # Sodium Level 142 Potassium Level 4.2 Chloride Level 104 Carbon Dioxide Level 29 Anion Gap 9 Blood Urea Nitrogen 10 Creatinine 0.95 Est Glomerular Filtrat > 60 Rate mL/min Glucose Level 169 Calcium Level 8.9 Vancomycin Level Trough 13.4 Test 06/05/19 17:22 Bedside Glucose 141 Medications Medication Current Medications IV Flush (NS 3 ml) 3 ml PER PROTOCOL IV ; Start 06/03/19 at 21:30 Ondansetron HCl (Zofran Inj) 4 mg Q6H PRN IV NAUSEA/VOMITING; Start 06/03/19 at 21:30 Acetaminophen/ Hydrocodone Bitart ([place] (5/325)) 1 tab Q6H PRN PO .MOD PAIN 4- 6; Start 06/03/19 at 21:30 Morphine Sulfate (morphine) 2 mg Q4H PRN IV .SEVERE PAIN 7-10 Last administered on 06/04/19at 18:04; Admin Dose 2 MG; Start 06/03/19 at 21:30 Albuterol/ Ipratropium (Duoneb) 3 ml Q2H RESP THERAPY PRN HHN SHORTNESS OF BREATH; Start 06/03/19 at 21:30 Atorvastatin Calcium (Lipitor) 10 mg QHS PO Last administered on 06/04/19at 20:48; Admin Dose 10 MG; Start 06/04/19 at 21:00 Cefepime HCl 50 ml @ 100 mls/hr Q12 IVPB Last administered on 06/05/19at 08:24; Admin Dose 100 MLS/HR; Start 06/04/19 at 09:00 Vancomycin HCl (Vanco Iv Per Pharmacy) VANCOMYCIN PER PHARMACY PER PROTOCOL XX ; Start 06/04/19 at 06:00 Vancomycin HCl 250 ml @ 125 mls/hr Q8H IVPB Last administered on 06/05/19at 14:40; Admin Dose 125 MLS/HR; Start 06/04/19 at 06:00 Miscellaneous Information 1 ea NOTE XX ; Start 06/04/19 at 01:00 Glucose (Glutose) 15 gm Q15M PRN PO DECREASED GLUCOSE; Start 06/04/19 at 01:00 Glucose (Glutose) 22.5 gm Q15M PRN PO DECREASED GLUCOSE; Start 06/04/19 at 01:00 Dextrose (D50w Syringe) 25 ml Q15M PRN IV DECREASED GLUCOSE; Start 06/04/19 at 01:00 Dextrose (D50w Syringe) 50 ml Q15M PRN IV DECREASED GLUCOSE; Start 06/04/19 at 01:00 Glucagon (Glucagen) 1 mg Q15M PRN IM DECREASED GLUCOSE; Start 06/04/19 at 01:00 Glucose (Glutose) 15 gm Q15M PRN BUCCAL DECREASED GLUCOSE; Start 06/04/19 at 01:00 Acetaminophen/ Hydrocodone Bitart ([place] (5/325)) 1 tab Q4H PRN PO MODERATE PAIN LEVEL 4-6 Last administered on 06/04/19 20:00; Admin Dose 1 TAB; Start 06/04/19 at 11:30 Cholecalciferol (Vitamin D) 5,000 unit DAILY PO Last administered on 06/05/19 08:24; Admin Dose 5,000 UNIT; Start 06/04/19 at 11:30 Multivitamins Therapeutic (Theragran) 1 tab DAILY PO Last administered on 06/05/19 08:24; Admin Dose 1 TAB; Start 06/04/19 at 11:30 Ascorbic Acid (Vitamin C) 1,000 mg BID PO Last administered on 06/05/19 08:24; Admin Dose 1,000 MG; Start 06/04/19 at 11:30 Diagnostic Test (Pha) (Accu-Chek) 1 ea 02 XX ; Start 06/05/19 at 02:00 Insulin Aspart (Novolog Insulin Pen) NOVOLOG *MILD* ALGORITHM WITH MEALS BEDTIME SC Last administered on 06/05/19 17:24; Admin Dose 1 UNIT; Start 06/04/19 at 12:00 Fish Oil (Fish Oil) 1,000 mg BID PO Last administered on 06/05/19 08:24; Admin Dose 1,000 MG; Start 06/04/19 at 21:00 Hydromorphone HCl (Dilaudid) 1 mg Q4H PRN IV SEVERE PAIN LEVEL 7-10 Last administered on 06/05/19 17:26; Admin Dose 1 MG; Start 06/04/19 at 22:30 Apixaban (Eliquis) 5 mg BID PO ; Start 06/05/19 at 21:00 BRENDAN CHERY NP Jun 05, 2019 18:27
--- NOTE | 2019-06-05 18:55 | PN ---
Date/Time of Note Date/Time of Note DATE: 06/05/19 TIME: 18:52 Assessment/Plan Lines/Catheters IV Catheter Type (from Nrs): Peripheral IV Assessment/Plan Assessment/Plan POD#1 s/p left achilles tendon I&D, hardware removal from the calc, and bone removal with cultures + for K.Pneumo and other GNR. he was 7.5 weeks s/p previous Achilles tendon repair, DM2, DVT + - NWB to LLE in Spl[place] - Vanco and cefipime - Spoke with Dr Pickett and will likely DC Vanco tomorrow and place PICC line for 3 weeks of IV Abx and 3 weeks of PO abx - SW and Case Mgmt seeing patient - [facility] for DVT treatment --- Bladimir Thacker MD Exam/Review of Systems Vital Signs Vitals Vital Signs Date Temp Pulse Resp B/P (MAP) Pulse Ox O2 O2 Flow FiO2 Time Delivery Rate 06/05/19 98.1 89 18 98/62 (74) 90 13:50 06/04/19 Room Air 14:54 06/04/19 3.0 11:59 Intake and Output 06/04/19 06/04/19 06/05/19 1515:00 23:00 07:00 IntakeIntake Total 1750 ml 720 ml 250 ml OutputOutput Total 10 ml 650 ml BalanceBalance 1740 ml 70 ml 250 ml Results Result Diagram: 06/05/19 0503 06/05/19 0503 SHAHLA THACKER MD Jun 05, 2019 18:55
[2019-06-05] MEDS: morphine 2 MG INJ IV PRN (19:56)
[2019-06-05 20:00] VITALS: BP 106/68; PULSE 71; RESP 19
[2019-06-05] MEDS ORDERED: INSULIN GLARGINE [LANTus] (100 UNITS/ML) SYG SC SCH (20:00)
[2019-06-05] MEDS: ATORVASTATIN 10 MG TAB PO SCH (21:02)
[2019-06-05] MEDS: APIXABAN 5 MG TABLET PO SCH (21:02)
[2019-06-06] MEDS: morphine 2 MG INJ IV PRN ×2 (01:07→05:16)
[2019-06-06] MEDS: ACCU-CHEK XX SCH (02:00)
[2019-06-06] MEDS: HYDROmorphONE 1 MG/ML SYG IV PRN ×5 (02:01→20:18)
[2019-06-06 02:23] VITALS: BP 114/72; PULSE 78; RESP 18
[2019-06-06] MEDS: HYDROCODONE/APAP (5/325) TAB PO PRN (04:22)
[2019-06-06] MEDS: VANCOMYCIN 1 GM 250 ML IVPB SCH ×3 (05:16→22:38)
[2019-06-06 08:00] VITALS: BP 105/67; PULSE 88; RESP 17
[2019-06-06] MEDS: CEFEPIME 1GM/50 ML (PMX) 50 ML IVPB SCH ×2 (08:33→20:27)
[2019-06-06] MEDS: INSULIN ASPART [NOVOLOG] 3 ML PEN SC SCH ×6 (08:35→20:33)
[2019-06-06] MEDS: CHOLECALCIFEROL 1,000 UNIT TAB PO SCH (08:36)
[2019-06-06] MEDS: ASCORBIC ACID 500 MG TAB PO SCH ×2 (08:36→20:22)
[2019-06-06] MEDS: APIXABAN 5 MG TABLET PO SCH ×2 (08:36→20:25)
[2019-06-06] MEDS: MULTIVITAMINS THERAPEUTIC TAB PO SCH (08:36)
[2019-06-06] MEDS: FISH OIL 1,000 MG CAP PO SCH ×2 (08:36→20:21)
[2019-06-06] MEDS ORDERED: LIDOCAINE 1% (MPF) 5 ML VIAL SC ONE (10:00)
[2019-06-06 14:00] VITALS: BP 106/65; PULSE 84; RESP 17
--- NOTE | 2019-06-06 14:50 | PN ---
Date/Time of Note Date/Time of Note DATE: 06/06/19 TIME: 14:48 Assessment/Plan VTE Prophylaxis Risk score (from [facility])>0 risk: 10 SCD applied (from [facility]): No SCD contraindicated: other Pharmacological prophylaxis: apixaban Lines/Catheters IV Catheter Type (from [email or web address] Peripheral IV Assessment/Plan Hospital Course Assessment and plan 1. Postop infection of left Achilles. Patient reportedly had repair 8 weeks ago. Continue with antibiotics. Patient status post irrigation and debride ment. ID consult following. culture showing K.PNEUMONIAE SSP PNEUMONIAE. PT per surgeon 2. History of left lower extremity DVT. back on eliquis. f/u LLE imaging. 3. History of diabetes. Continue on insulin. 4. History of dyslipidemia. Start on fish oil. Disposition and plan. PT per surgeon. plan for picc line for superintendent terminal abx. f/u imaging LLE for DVT f/u Discussed POC with Dr. Garrison Result Diagram: 06/06/19 0553 06/05/19 0503 Results 24hrs Laboratory Tests Test 06/05/19 17:22 06/05/19 20:06 06/05/19 21:04 06/06/19 02:05 Bedside Glucose 141 149 190 156 Test 06/06/19 05:53 06/06/19 08:11 06/06/19 12:18 White Blood Count 7.8 # Red Blood Count 4.97 Hemoglobin 13.0 L Hematocrit 39.9 L Mean Corpuscular Volume 80.3 L Mean Corpuscular 26.2 L Hemoglobin Mean Corpuscular 32.6 Hemoglobin Concent Red Cell Distribution 12.9 Width Platelet Count 280 Mean Platelet Volume 9.2 Immature Granulocytes % 0.400 Neutrophils % 58.8 Lymphocytes % 29.3 Monocytes % 9.7 Eosinophils % 1.4 Basophils % 0.4 Nucleated Red Blood 0.0 Cells % Immature Granulocytes # 0.030 Neutrophils # 4.6 Lymphocytes # 2.3 Monocytes # 0.8 Eosinophils # 0.1 Basophils # 0.0 Nucleated Red Blood 0.0 Cells # C-Reactive Protein 17.8 H Bedside Glucose 145 163 Subjective 24 Hr Interval Summary Free Text/Dictation resting in bed. no specific complaints. Exam/Review of Systems Exam Vitals Vital Signs Date Temp Pulse Resp B/P (MAP) Pulse Ox O2 O2 Flow FiO2 Time Delivery Rate 06/06/19 98.9 88 17 105/67 95 Room Air 08:00 (80) 06/04/19 3.0 11:59 Intake and Output 06/05/19 06/05/19 06/06/19 1414:59 22:59 06:59 IntakeIntake Total 1100 ml 600 ml 1150 ml OutputOutput Total 300 ml BalanceBalance 800 ml 600 ml 1150 ml Exam Constitutional: alert, oriented Psych: nl mood/affect Head: normocephalic Eyes: nl conjunctiva Neck: supple, non-tender Respiratory: clear to auscultation Cardiovascular: regular rate and rhythm Gastrointestinal: soft, non-tender Musculoskeletal: other (left foot in dressing ) Neurological: EPIC PROFESSIONAL II-XII intact, nl mental status, nl speech Results Results 24hrs Laboratory Tests Test 06/05/19 17:22 06/05/19 20:06 06/05/19 21:04 06/06/19 02:05 Bedside Glucose 141 149 190 156 Test 06/06/19 05:53 06/06/19 08:11 06/06/19 12:18 White Blood Count 7.8 # Red Blood Count 4.97 Hemoglobin 13.0 L Hematocrit 39.9 L Mean Corpuscular Volume 80.3 L Mean Corpuscular 26.2 L Hemoglobin Mean Corpuscular 32.6 Hemoglobin Concent Red Cell Distribution 12.9 Width Platelet Count 280 Mean Platelet Volume 9.2 Immature Granulocytes % 0.400 Neutrophils % 58.8 Lymphocytes % 29.3 Monocytes % 9.7 Eosinophils % 1.4 Basophils % 0.4 Nucleated Red Blood 0.0 Cells % Immature Granulocytes # 0.030 Neutrophils # 4.6 Lymphocytes # 2.3 Monocytes # 0.8 Eosinophils # 0.1 Basophils # 0.0 Nucleated Red Blood 0.0 Cells # C-Reactive Protein 17.8 H Bedside Glucose 145 163 Medications Medication Current Medications IV Flush (NS 3 ml) 3 ml PER PROTOCOL IV ; Start 06/03/19 at 21:30 Ondansetron HCl (Zofran Inj) 4 mg Q6H PRN IV NAUSEA/VOMITING; Start 06/03/19 at 21:30 Acetaminophen/ Hydrocodone Bitart ([place] (5/325)) 1 tab Q6H PRN PO .MOD PAIN 4- 6; Start 06/03/19 at 21:30 Morphine Sulfate (morphine) 2 mg Q4H PRN IV .SEVERE PAIN 7-10 Last administered on 06/06/19at 05:16; Admin Dose 2 MG; Start 06/03/19 at 21:30 Albuterol/ Ipratropium (Duoneb) 3 ml Q2H RESP THERAPY PRN HHN SHORTNESS OF BREATH; Start 06/03/19 at 21:30 Atorvastatin Calcium (Lipitor) 10 mg QHS PO Last administered on 06/05/19at 21:02; Admin Dose 10 MG; Start 06/04/19 at 21:00 Cefepime HCl 50 ml @ 100 mls/hr Q12 IVPB Last administered on 06/06/19at 08:33; Admin Dose 100 MLS/HR; Start 06/04/19 at 09:00 Vancomycin HCl (Vanco Iv Per Pharmacy) VANCOMYCIN PER PHARMACY PER PROTOCOL XX ; Start 06/04/19 at 06:00 Vancomycin HCl 250 ml @ 125 mls/hr Q8H IVPB Last administered on 06/06/19at 05:16; Admin Dose 125 MLS/HR; Start 06/04/19 at 06:00 Miscellaneous Information 1 ea NOTE XX ; Start 06/04/19 at 01:00 Glucose (Glutose) 15 gm Q15M PRN PO DECREASED GLUCOSE; Start 06/04/19 at 01:00 Glucose (Glutose) 22.5 gm Q15M PRN PO DECREASED GLUCOSE; Start 06/04/19 at 01:00 Dextrose (D50w Syringe) 25 ml Q15M PRN IV DECREASED GLUCOSE; Start 06/04/19 at 01:00 Dextrose (D50w Syringe) 50 ml Q15M PRN IV DECREASED GLUCOSE; Start 06/04/19 at 01:00 Glucagon (Glucagen) 1 mg Q15M PRN IM DECREASED GLUCOSE; Start 06/04/19 at 01:00 Glucose (Glutose) 15 gm Q15M PRN BUCCAL DECREASED GLUCOSE; Start 06/04/19 at 01:00 Acetaminophen/ Hydrocodone Bitart ([place] (5/325)) 1 tab Q4H PRN PO MODERATE PAIN LEVEL 4-6 Last administered on 06/06/19at 04:22; Admin Dose 1 TAB; Start 06/04/19 at 11:30 Cholecalciferol (Vitamin D) 5,000 unit DAILY PO Last administered on 06/06/19at 08:36; Admin Dose 5,000 UNIT; Start 06/04/19 at 11:30 Multivitamins Therapeutic (Theragran) 1 tab DAILY PO Last administered on 06/06/19 08:36; Admin Dose 1 TAB; Start 06/04/19 at 11:30 Ascorbic Acid (Vitamin C) 1,000 mg BID PO Last administered on 06/06/19 08:36; Admin Dose 1,000 MG; Start 06/04/19 at 11:30 Diagnostic Test (Pha) (Accu-Chek) 1 ea 02 XX ; Start 06/05/19 at 02:00 Insulin Aspart (Novolog Insulin Pen) NOVOLOG *MILD* ALGORITHM WITH MEALS BEDTIME SC Last administered on 06/06/19 12:30; Admin Dose 1 UNIT; Start 06/04/19 at 12:00 Fish Oil (Fish Oil) 1,000 mg BID PO Last administered on 06/06/19 08:36; Admin Dose 1,000 MG; Start 06/04/19 at 21:00 Hydromorphone HCl (Dilaudid) 1 mg Q4H PRN IV SEVERE PAIN LEVEL 7-10 Last administered on 06/06/19 10:45; Admin Dose 1 MG; Start 06/04/19 at 22:30 Apixaban (Eliquis) 5 mg BID PO Last administered on 06/06/19 08:36; Admin Dose 5 MG; Start 06/05/19 at 21:00 Insulin Glargine (Lantus) 18 units DAILY@2000 SC ; Start 06/06/19 at 20:00 Insulin Aspart (Novolog Insulin Pen) 4 unit WITH MEALS SC Last administered on 06/06/19 12:30; Admin Dose 4 UNIT; Start 06/06/19 at 11:30 PINEDA LINK NP Jun 06, 2019 14:50
[2019-06-06] MEDS ORDERED: INSULIN GLARGINE [LANTus] (100 UNITS/ML) SYG SC SCH (20:00)
[2019-06-06 20:06] VITALS: BP 104/60; PULSE 86; RESP 20
--- NOTE | 2019-06-06 20:07 | CONS ---
Assessment/Plan Assessment/Plan Hospital Course (Demo Recall) ID PROGRESS NOTE CURRENT ABX: DAY # =>Vanco IV + Cefepime 06/06/19 0553 06/05/19 0503 24H INTERVAL SUMMARY * POD #2 -> s/p 06/04/19 LEFT Achilles/calcaneus hardware removal w/partial bone excision * PAIN IMPROVED --- DOING WELL -- NO NEW ISSUES * Non-weight bearing status post-op, no complaints DIAGNOSTIC IMAGING * 06/03/19 LEFT LEG US: No sonographic evidence for deep venous thrombosis. * 06/03/19 MRI ANKLE: IMPRESSION: Complete versus near-complete tear of the Achilles tendon, with about 9 mm retraction. MICRO * * 06/04/19 TISSUE CX from I&D all growing (+)GNR ==WOUND CULTURE Final Organism 1 KLEBSIELLA PNEUMONIAE QUANTITY 1+ TUBE A K PNEUMO M.I.C. RX --------- --- CEFAZOLIN S CEFOTAXIME S CIPROFLOXACIN <=0.25 S GENTAMICIN <=1 S LEVOFLOXACIN <=0.12 S TOBRAMYCIN <=1 S TRIMETHOPRIM/SULFAMETHOXAZOLE <=20 S * 06/03/19 (+) WOUND CULTURE Final Organism 1 K.PNEUMONIAE SSP PNEUMONIAE QUANTITY 2+ K PNE SPP M.I.C. RX --------- --- CEFAZOLIN S CEFOTAXIME S CIPROFLOXACIN <=0.25 S GENTAMICIN <=1 S LEVOFLOXACIN <=0.12 S TOBRAMYCIN <=1 S TRIMETHOPRIM/SULFAMETHOXAZOLE <=20 S PHYSICAL EXAMINATION: GENERAL: VSS, NAD HEENT: AT, NC, NECK: Supple, CHEST: Rise symmetrical HEART: Pulse RRR ABDOMEN: Benign EXTREMITIES: Warm, dry == left lower ext dsg c/d/i SKIN: No rash, no diaphoresis ID ASSESSMENT 43 yo M admit with: 1. SIRS / early sepsis w/low grade fevers, mild tachycardia, leukocytosis on admission due to #2 2. Complex LEFT LOWER EXTREMITY FOOT/ANKLE infection =>~ 7-1/2 weeks status post left Achilles repair * Left Achilles infection * Left calcaneus painful hardware * Left calcaneus concern for osteomyelitis - ESR @ 4 * POD #1 -> s/p 06/04/19 LEFT Achilles/calcaneus hardware removal w/partial bone excision 3. History of left lower extremity DVT. On heparin for now. To be resumed on Eliquis 4. DMT2 w/complications * A1C 7.9% 5. HLD 6. Obesity ABX ALLERGIES: KNDA INVASIVES: PIV CURRENT ABX: DAY # =>>Vanco IV + Cefepime ID RECOMMENDATIONS/PLAN: 1. Continue current ABX 2. PLEASE ORDER PICC LINE 3. D/W APC and Dr. Pickett * --> PLAN is to DC on Ceftriaxone 2gm IV daily x 21 days followed by BACTRIM DS 1TAB PO Q12 w/full glass H20 x 21 days for a total 6 weeks ABX * Please make sure patient has appointment with Dr. Pickett 2-3 weeks post DC . Consultation Date/Type/Reason Admit Date/Time Jun 03, 2019 at 19:13 Initial Consult Date Date/Time of Note DATE: 06/06/19 TIME: 20:04 Exam/Review of Systems Exam Vitals Vital Signs Date Temp Pulse Resp B/P (MAP) Pulse Ox O2 O2 Flow FiO2 Time Delivery Rate 06/06/19 98.0 84 17 106/65 95 Room Air 14:00 (79) 06/04/19 3.0 11:59 Intake and Output 06/05/19 06/05/19 06/06/19 1515:00 23:00 07:00 IntakeIntake Total 1100 ml 600 ml 1150 ml OutputOutput Total 300 ml BalanceBalance 800 ml 600 ml 1150 ml Results Result Diagram: 06/06/19 0553 06/05/19 0503 Results 24hrs Laboratory Tests Test 06/05/19 20:06 06/05/19 21:04 06/06/19 02:05 06/06/19 05:53 Bedside Glucose 149 190 156 White Blood Count 7.8 # Red Blood Count 4.97 Hemoglobin 13.0 L Hematocrit 39.9 L Mean Corpuscular Volume 80.3 L Mean Corpuscular 26.2 L Hemoglobin Mean Corpuscular 32.6 Hemoglobin Concent Red Cell Distribution 12.9 Width Platelet Count 280 Mean Platelet Volume 9.2 Immature Granulocytes % 0.400 Neutrophils % 58.8 Lymphocytes % 29.3 Monocytes % 9.7 Eosinophils % 1.4 Basophils % 0.4 Nucleated Red Blood 0.0 Cells % Immature Granulocytes # 0.030 Neutrophils # 4.6 Lymphocytes # 2.3 Monocytes # 0.8 Eosinophils # 0.1 Basophils # 0.0 Nucleated Red Blood 0.0 Cells # C-Reactive Protein 17.8 H Test 06/06/19 08:11 06/06/19 12:18 06/06/19 17:14 Bedside Glucose 145 163 137 Medications Medication Current Medications IV Flush (NS 3 ml) 3 ml PER PROTOCOL IV ; Start 06/03/19 at 21:30 Ondansetron HCl (Zofran Inj) 4 mg Q6H PRN IV NAUSEA/VOMITING; Start 06/03/19 at 21:30 Acetaminophen/ Hydrocodone Bitart ([place] (5/325)) 1 tab Q6H PRN PO .MOD PAIN 4- 6; Start 06/03/19 at 21:30 Morphine Sulfate (morphine) 2 mg Q4H PRN IV .SEVERE PAIN 7-10 Last administered on 06/06/19at 05:16; Admin Dose 2 MG; Start 06/03/19 at 21:30 Albuterol/ Ipratropium (Duoneb) 3 ml Q2H RESP THERAPY PRN HHN SHORTNESS OF BREATH; Start 06/03/19 at 21:30 Atorvastatin Calcium (Lipitor) 10 mg QHS PO Last administered on 06/05/19at 21:02; Admin Dose 10 MG; Start 06/04/19 at 21:00 Cefepime HCl 50 ml @ 100 mls/hr Q12 IVPB Last administered on 06/06/19at 08:33; Admin Dose 100 MLS/HR; Start 06/04/19 at 09:00 Vancomycin HCl (Vanco Iv Per Pharmacy) VANCOMYCIN PER PHARMACY PER PROTOCOL XX ; Start 06/04/19 at 06:00 Vancomycin HCl 250 ml @ 125 mls/hr Q8H IVPB Last administered on 06/06/19at 15:30; Admin Dose 125 MLS/HR; Start 06/04/19 at 06:00 Miscellaneous Information 1 ea NOTE XX ; Start 06/04/19 at 01:00 Glucose (Glutose) 15 gm Q15M PRN PO DECREASED GLUCOSE; Start 06/04/19 at 01:00 Glucose (Glutose) 22.5 gm Q15M PRN PO DECREASED GLUCOSE; Start 06/04/19 at 01:00 Dextrose (D50w Syringe) 25 ml Q15M PRN IV DECREASED GLUCOSE; Start 06/04/19 at 01:00 Dextrose (D50w Syringe) 50 ml Q15M PRN IV DECREASED GLUCOSE; Start 06/04/19 at 01:00 Glucagon (Glucagen) 1 mg Q15M PRN IM DECREASED GLUCOSE; Start 06/04/19 at 01:00 Glucose (Glutose) 15 gm Q15M PRN BUCCAL DECREASED GLUCOSE; Start 06/04/19 at 01:00 Acetaminophen/ Hydrocodone Bitart ([place] (5/325)) 1 tab Q4H PRN PO MODERATE PAIN LEVEL 4-6 Last administered on 06/06/19 04:22; Admin Dose 1 TAB; Start 06/04/19 at 11:30 Cholecalciferol (Vitamin D) 5,000 unit DAILY PO Last administered on 06/06/19 08:36; Admin Dose 5,000 UNIT; Start 06/04/19 at 11:30 Multivitamins Therapeutic (Theragran) 1 tab DAILY PO Last administered on 06/06/19 08:36; Admin Dose 1 TAB; Start 06/04/19 at 11:30 Ascorbic Acid (Vitamin C) 1,000 mg BID PO Last administered on 06/06/19 08:36; Admin Dose 1,000 MG; Start 06/04/19 at 11:30 Diagnostic Test (Pha) (Accu-Chek) 1 ea 02 XX ; Start 06/05/19 at 02:00 Insulin Aspart (Novolog Insulin Pen) NOVOLOG *MILD* ALGORITHM WITH MEALS BEDTIME SC Last administered on 06/06/19 12:30; Admin Dose 1 UNIT; Start 06/04/19 at 12:00 Fish Oil (Fish Oil) 1,000 mg BID PO Last administered on 06/06/19 08:36; Admin Dose 1,000 MG; Start 06/04/19 at 21:00 Hydromorphone HCl (Dilaudid) 1 mg Q4H PRN IV SEVERE PAIN LEVEL 7-10 Last administered on 06/06/19 16:09; Admin Dose 1 MG; Start 06/04/19 at 22:30 Apixaban (Eliquis) 5 mg BID PO Last administered on 06/06/19 08:36; Admin Dose 5 MG; Start 06/05/19 at 21:00 Insulin Glargine (Lantus) 18 units DAILY@2000 SC ; Start 06/06/19 at 20:00 Insulin Aspart (Novolog Insulin Pen) 4 unit WITH MEALS SC Last administered on 06/06/19at 17:16; Admin Dose 4 UNIT; Start 06/06/19 at 11:30 BRENDAN CHERY NP Jun 06, 2019 20:07
[2019-06-06] MEDS: ATORVASTATIN 10 MG TAB PO SCH (20:21)
[2019-06-07] MEDS: HYDROmorphONE 1 MG/ML SYG IV PRN ×4 (00:21→13:51)
[2019-06-07] MEDS: ACCU-CHEK XX SCH (01:10)
[2019-06-07] MEDS: VANCOMYCIN 1 GM 250 ML IVPB SCH ×2 (05:39→13:50)
[2019-06-07 08:00] VITALS: BP_SYST 117; PULSE 89; RESP 20
[2019-06-07] MEDS: MULTIVITAMINS THERAPEUTIC TAB PO SCH (08:07)
[2019-06-07] MEDS: ASCORBIC ACID 500 MG TAB PO SCH (08:07)
[2019-06-07] MEDS: CHOLECALCIFEROL 1,000 UNIT TAB PO SCH (08:07)
[2019-06-07] MEDS: FISH OIL 1,000 MG CAP PO SCH (08:07)
[2019-06-07] MEDS: APIXABAN 5 MG TABLET PO SCH (08:07)
[2019-06-07] MEDS: CEFEPIME 1GM/50 ML (PMX) 50 ML IVPB SCH (08:08)
[2019-06-07] MEDS: INSULIN ASPART [NOVOLOG] 3 ML PEN SC SCH ×6 (08:10→17:19)
[2019-06-07] MEDS ORDERED: INSU100I12 SQ (12:01)
[2019-06-07] MEDS ORDERED: ATOR10TA65 PO (12:01)
[2019-06-07] MEDS ORDERED: INSU100I33 SC (12:01)
[2019-06-07] MEDS ORDERED: ASC500 PO (12:01)
[2019-06-07] MEDS ORDERED: OMEG100024 PO (12:01)
[2019-06-07] MEDS ORDERED: HYDR-3601 PO (12:01)
[2019-06-07] MEDS ORDERED: CHOL100062 PO (12:01)
[2019-06-07] MEDS ORDERED: MULTI PO (12:01)
--- NOTE | 2019-06-07 12:05 | PDOCDIS ---
Discharge Instructions DIAGNOSIS Discharge Diagnosis 1. Postop infection of left Achilles. 2. History of left lower extremity DVT 3. History of diabetes 4. History of dyslipidemia. CONDITION [id number] Patient Condition: [id number] Stable HOME CARE INSTRUCTIONS: Acsvf7Ct Diet Instructions: [id number] Low Fat /Cholesterol [id number] Special Diet: Naaxl7d carbohydrate controlled FOLLOW UP/APPOINTMENTS Follow-up Plan Follow up with Dr. Timoteo Lobo (orthopedic surgeon) in one week Office Address [facility] [address] [place] [address] Office Follow up with Dr. Brian Yadav (Vascular Surgeon) in 1-2 weeks for your left leg clot Office Address [address] [facility] [address] [address] Office Follow up with Dr. Gaurav Pickett (Infectious Disease Specialist) in 2 weeks Office Address [facility] [facility] [address] [place] [address] Office PINEDA LINK NP Jun 07, 2019 12:05
[2019-06-07] MEDS: HYDROCODONE/APAP (5/325) TAB PO PRN ×2 (12:29→17:15)
[2019-06-07 14:00] VITALS: BP 130/66; PULSE 86; RESP 18
--- NOTE | 2019-06-07 17:21 | CONS ---
Assessment/Plan Assessment/Plan Hospital Course (Demo Recall) ID PROGRESS NOTE CURRENT ABX: DAY # =>Vanco IV + Cefepime 24H INTERVAL SUMMARY * POD #2 -> s/p 06/04/19 LEFT Achilles/calcaneus hardware removal w/partial bone excision * PICC LINE PLACED TODAY ==== MAY PROCEED TO DC PLANNING * PAIN IMPROVED --- DOING WELL -- NO NEW ISSUES * Non-weight bearing status post-op, no complaints DIAGNOSTIC IMAGING * 06/03/19 LEFT LEG US: No sonographic evidence for deep venous thrombosis. * 06/03/19 MRI ANKLE: IMPRESSION: Complete versus near-complete tear of the Achilles tendon, with about 9 mm retraction. MICRO * * 06/04/19 TISSUE CX from I&D all growing (+)GNR ==WOUND CULTURE Final Organism 1 KLEBSIELLA PNEUMONIAE QUANTITY 1+ TUBE A K PNEUMO M.I.C. RX --------- --- CEFAZOLIN S CEFOTAXIME S CIPROFLOXACIN <=0.25 S GENTAMICIN <=1 S LEVOFLOXACIN <=0.12 S TOBRAMYCIN <=1 S TRIMETHOPRIM/SULFAMETHOXAZOLE <=20 S * 06/03/19 (+) WOUND CULTURE Final Organism 1 K.PNEUMONIAE SSP PNEUMONIAE QUANTITY 2+ K PNE SPP M.I.C. RX --------- --- CEFAZOLIN S CEFOTAXIME S CIPROFLOXACIN <=0.25 S GENTAMICIN <=1 S LEVOFLOXACIN <=0.12 S TOBRAMYCIN <=1 S TRIMETHOPRIM/SULFAMETHOXAZOLE <=20 S PHYSICAL EXAMINATION: GENERAL: VSS, NAD HEENT: AT, NC, NECK: Supple, CHEST: Rise symmetrical HEART: Pulse RRR ABDOMEN: Benign EXTREMITIES: Warm, dry == left lower ext dsg c/d/i SKIN: No rash, no diaphoresis ID ASSESSMENT 43 yo M admit with: 1. SIRS / early sepsis w/low grade fevers, mild tachycardia, leukocytosis on admission due to #2 2. Complex LEFT LOWER EXTREMITY FOOT/ANKLE infection =>~ 7-1/2 weeks status post left Achilles repair * Left Achilles infection * Left calcaneus painful hardware * Left calcaneus concern for osteomyelitis - ESR @ 4 * POD #1 -> s/p 06/04/19 LEFT Achilles/calcaneus hardware removal w/partial bone excision 3. History of left lower extremity DVT. On heparin for now. To be resumed on Eliquis 4. DMT2 w/complications * A1C 7.9% 5. HLD 6. Obesity ABX ALLERGIES: KNDA INVASIVES: PIV CURRENT ABX: DAY # =>>Vanco IV + Cefepime ID RECOMMENDATIONS/PLAN: 1. Continue current ABX 2. DC Vanco IV 3. D/W APC and Dr. Pickett * --> PLAN is to DC on Ceftriaxone 2gm IV daily x 21 days followed by BACTRIM DS 1TAB PO Q12 w/full glass H20 x 21 days for a total 6 weeks ABX * Please make sure patient has appointment with Dr. Pickett 2-3 weeks post DC . Consultation Date/Type/Reason Admit Date/Time Jun 03, 2019 at 19:13 Initial Consult Date Date/Time of Note DATE: 06/07/19 TIME: 17:19 Exam/Review of Systems Exam Vitals Vital Signs Date Temp Pulse Resp B/P (MAP) Pulse Ox O2 O2 Flow FiO2 Time Delivery Rate 06/07/19 98.8 86 18 130/66 94 14:00 (87) 06/06/19 Room Air 14:00 06/04/19 3.0 11:59 Intake and Output 06/06/19 06/06/19 06/07/19 1515:00 23:00 07:00 IntakeIntake Total 1100 ml 900 ml 1205 ml OutputOutput Total 1100 ml 1000 ml 2000 ml BalanceBalance 0 ml -100 ml -795 ml Results Result Diagram: 06/07/19 0513 06/07/19 0513 Results 24hrs Laboratory Tests Test 06/06/19 20:23 06/07/19 05:13 06/07/19 08:02 06/07/19 12:16 Bedside Glucose 137 150 177 White Blood Count 7.5 Red Blood Count 5.34 Hemoglobin 13.9 L Hematocrit 42.3 Mean Corpuscular Volume 79.2 L Mean Corpuscular 26.0 L Hemoglobin Mean Corpuscular 32.9 Hemoglobin Concent Red Cell Distribution 12.7 Width Platelet Count 331 Mean Platelet Volume 9.3 Immature Granulocytes % 0.700 H Neutrophils % 57.4 Lymphocytes % 29.1 Monocytes % 9.1 Eosinophils % 3.2 Basophils % 0.5 Nucleated Red Blood 0.0 Cells % Immature Granulocytes # 0.050 H Neutrophils # 4.3 Lymphocytes # 2.2 Monocytes # 0.7 Eosinophils # 0.2 Basophils # 0.0 Nucleated Red Blood 0.0 Cells # Sodium Level 142 Potassium Level 4.0 Chloride Level 104 Carbon Dioxide Level 30 Anion Gap 8 Blood Urea Nitrogen 12 Creatinine 0.86 Est Glomerular Filtrat > 60 Rate mL/min Glucose Level 167 Calcium Level 9.2 Medications Medication Current Medications IV Flush (NS 3 ml) 3 ml PER PROTOCOL IV ; Start 06/03/19 at 21:30 Ondansetron HCl (Zofran Inj) 4 mg Q6H PRN IV NAUSEA/VOMITING; Start 06/03/19 at 21:30 Acetaminophen/ Hydrocodone Bitart ([place] (5/325)) 1 tab Q6H PRN PO .MOD PAIN 4- 6; Start 06/03/19 at 21:30 Morphine Sulfate (morphine) 2 mg Q4H PRN IV .SEVERE PAIN 7-10 Last administered on 06/06/19at 05:16; Admin Dose 2 MG; Start 06/03/19 at 21:30 Albuterol/ Ipratropium (Duoneb) 3 ml Q2H RESP THERAPY PRN HHN SHORTNESS OF BREATH; Start 06/03/19 at 21:30 Atorvastatin Calcium (Lipitor) 10 mg QHS PO Last administered on 06/06/19at 20:21; Admin Dose 10 MG; Start 06/04/19 at 21:00 Cefepime HCl 50 ml @ 100 mls/hr Q12 IVPB Last administered on 06/07/19at 08:08; Admin Dose 100 MLS/HR; Start 06/04/19 at 09:00 Vancomycin HCl (Vanco Iv Per Pharmacy) VANCOMYCIN PER PHARMACY PER PROTOCOL XX ; Start 06/04/19 at 06:00 Vancomycin HCl 250 ml @ 125 mls/hr Q8H IVPB Last administered on 06/07/19at 13:50; Admin Dose 125 MLS/HR; Start 06/04/19 at 06:00 Miscellaneous Information 1 ea NOTE XX ; Start 06/04/19 at 01:00 Glucose (Glutose) 15 gm Q15M PRN PO DECREASED GLUCOSE; Start 06/04/19 at 01:00 Glucose (Glutose) 22.5 gm Q15M PRN PO DECREASED GLUCOSE; Start 06/04/19 at 01:00 Dextrose (D50w Syringe) 25 ml Q15M PRN IV DECREASED GLUCOSE; Start 06/04/19 at 01:00 Dextrose (D50w Syringe) 50 ml Q15M PRN IV DECREASED GLUCOSE; Start 06/04/19 at 01:00 Glucagon (Glucagen) 1 mg Q15M PRN IM DECREASED GLUCOSE; Start 06/04/19 at 01:00 Glucose (Glutose) 15 gm Q15M PRN BUCCAL DECREASED GLUCOSE; Start 06/04/19 at 01:00 Acetaminophen/ Hydrocodone Bitart ([place] (5/325)) 1 tab Q4H PRN PO MODERATE PAIN LEVEL 4-6 Last administered on 06/07/19 12:29; Admin Dose 1 TAB; Start 06/04/19 at 11:30 Cholecalciferol (Vitamin D) 5,000 unit DAILY PO Last administered on 06/07/19 08:07; Admin Dose 5,000 UNIT; Start 06/04/19 at 11:30 Multivitamins Therapeutic (Theragran) 1 tab DAILY PO Last administered on 06/07/19 08:07; Admin Dose 1 TAB; Start 06/04/19 at 11:30 Ascorbic Acid (Vitamin C) 1,000 mg BID PO Last administered on 06/07/19 08:07; Admin Dose 1,000 MG; Start 06/04/19 at 11:30 Diagnostic Test (Pha) (Accu-Chek) 1 ea 02 XX ; Start 06/05/19 at 02:00 Insulin Aspart (Novolog Insulin Pen) NOVOLOG *MILD* ALGORITHM WITH MEALS BEDTIME SC Last administered on 06/07/19 12:18; Admin Dose 1 UNIT; Start 06/04/19 at 12:00 Fish Oil (Fish Oil) 1,000 mg BID PO Last administered on 06/07/19 08:07; Admin Dose 1,000 MG; Start 06/04/19 at 21:00 Hydromorphone HCl (Dilaudid) 1 mg Q4H PRN IV SEVERE PAIN LEVEL 7-10 Last administered on 06/07/19 13:51; Admin Dose 1 MG; Start 06/04/19 at 22:30 Apixaban (Eliquis) 5 mg BID PO Last administered on 06/07/19 08:07; Admin Dose 5 MG; Start 06/05/19 at 21:00 Insulin Glargine (Lantus) 18 units DAILY@2000 SC Last administered on 06/06/19at 20:26; Admin Dose 18 UNITS; Start 06/06/19 at 20:00 Insulin Aspart (Novolog Insulin Pen) 4 unit WITH MEALS SC Last administered on 06/07/19at 12:19; Admin Dose 4 UNIT; Start 06/06/19 at 11:30 BRENDAN CHERY NP Jun 07, 2019 17:21
--- NOTE | 2019-06-08 14:15 | OPR ---
DATE OF OPERATION: 06/04/2019 PREOPERATIVE DIAGNOSES: 1. Left Achilles infection. 2. Left calcaneus painful hardware. POSTOPERATIVE DIAGNOSES: 1. Left Achilles infection. 2. Left calcaneus painful hardware. 3. Left calcaneus concern for possible osteomyelitis. OPERATION PERFORMED: 1. Left calcaneus irrigation and debridement. 2. Left calcaneus hardware removal. 3. Left calcaneus partial bony excision for concern for osteomyelitis. SURGEON: Timoteo Lobo MD. LOCAL SALES ASSOCIATE: None. ANESTHESIOLOGIST: Dr. Mora. ANESTHESIA TYPE: General. TOURNIQUET TIME: 88 minutes at 250 mmHg. ESTIMATED BLOOD LOSS: Minimal. TRANSFUSION REQUIRED: None. SPECIMENS: 1. Superficial and deep wound cultures. 2. Pathology from the Achilles. 3. Bone from the calcaneus. 4. Hardware from the calcaneus. IMPLANTS: 1. Vancomycin powder to the Achilles. 2. Vancomycin cement beads into the calcaneal bone. COMPLICATIONS: None. INDICATIONS: The patient is 7-1/2 weeks status post a left Achilles tendon repair, who presented to the emergency room last night with 2 days of purulent drainage from the left Achilles that started recently 2 days ago with no fever, chills, nausea or vomiting. Cultures were taken in the emergency room that were done. Pre antibiotics have been to the patient. The patient was admitted for surgical management today given the ongoing pain he described and drainage. RISK NOTE: The patient was explained the risks and benefits of surgery and the patient's kasaan language including not limited to infection, bleeding, injury to blood vessels, nerves, ligaments or tendons. Risks of anesthesia, deep vein thrombosis and need for reduce future surgery. Patient acknowledged these risk by signing the surgical consent form. OPERATIVE NOTE: The patient was met in the preoperative holding area and the correct operative extremity was marked and confirmed with both the patient and consent. The patient was brought to the operative theater, placed prone on the operative table and all bony prominences well padded. Tourniquet was placed on operative extremity nonsterilely. The patient was prepped and draped in normal sterile fashion. A timeout was taken. All parties in the room agreed this was the correct patient, extremity and procedure. Incision was made over the previous incision site and extended proximally and distally. Purulence was noted at the initial site of the drainage, which cultures were taken superficially at that point. The drainage did extend distally; however, there is no deep abscess noted, however, cultures were taken deeply. All FiberWire sutures were removed from the Achilles repair site and the Achilles did appear to have some healing at the tendon; however, there was no retraction of the Achilles noted and the proximal Achilles stump was very close to the distal Achilles stump at the time of the debridement. Attention was then turned to the calcaneus and the lateral calcaneal incision was made over the previous incision site and the screws were removed without complication and the bone did appear to be extraordinarily easy to probe into which was concerning for possible osteomyelitis. The medial incision site was made in the calcaneus wall and screws removed there without any complication as well. No purulence was noted at that site of the hardware. Both calcaneal bone sites were then debrided thoroughly and partial bony removal was made from the lateral calcaneal site where there was concern for possible osteomyelitis. The remainder of the wound was then irrigated thoroughly with 6 liters of normal saline mixed polymyxin bacitracin and the Achilles site was then debrided thoroughly with a curette. The wound was then further debrided and the calcaneal bony site was then packed with vancomycin beads, and then closed with a 3-0 Monocryl followed by 3-0 nylon, then the Achilles wound was then packed with vancomycin powder and then closed in layers with 2-0 Vicryl, followed by 3-0 Monocryl and 3-0 nylon in a vertical mattress fashion. At the end of the case, the wound appeared improved in terms of reduction of erythema and swelling and then dressed with Xeroform, triple antibiotic ointment, and placed in a well-padded short leg splint in plantar flexed position. At the end of the case, all sponge, needle counts were correct. The patient was taken to PACU in a stable condition. In the PACU the toes were warm and well perfused. Dictated By: TIMOTEO OJEDA/NTS Conf#: [id number] DID#: [id number] CC: JENNIFER SHEA MD;*EndCC* MTDD
--- NOTE | 2019-06-09 19:11 | DS ---
Date/Time of Note Date/Time of Note DATE: 06/09/19 TIME: 19:08 Discharge Summary Admission/Discharge Info Admit Date/Time Jun 03, 2019 at 19:13 Discharge Date/Time Jun 07, 2019 at 17:45 Discharge Diagnosis 1. Postop infection of left Achilles. 2. History of left lower extremity DVT 3. History of diabetes 4. History of dyslipidemia. Patient Condition: Stable Hospital Course This is a 43-year-old male with history of type 2 diabetes, hyperlipidemia, left lower extremity DVT on Eliquis, left Achilles tendon repair 8 weeks prior to admission with redness and drainage he came to the hospital due to postop infection of left Achilles. Patient did receive irrigation and debridement to the area. He was also seen by infectious disease consult and placed on appropriate antibiotics. He was resumed on Eliquis for his DVT on left leg. We also did advise him to follow-up with vascular surgeon upon discharge for which information for vascular surgeon was provided. He is otherwise optimized medically with insulin for diabetes and fish oil for dyslipidemia. He was advised for outpatient follow-up with his orthopedic surgeon as well. During his course of stay he did improve. The plan of care was discussed with patient and he verbalized his understanding. On the day of discharge patient was in stable condition Discussed POC with Dr. Garrison [place] Meds Active Scripts Hydrocodone Bit-Acetaminophen (Hydrocodone Bit-APAP) 5-325MG Tablet, 1 TAB PO Q4H PRN for MODERATE PAIN LEVEL 4-6, #30 TAB Prov:PINEDA LINK NP 06/07/19 Insulin Lispro (Humalog Kwikpen U-100) 100 Unit/1 Ml Insuln.pen, 5 UNIT SQ AC MEALS, #1 EA Prov:PINEDA LINK NP 06/07/19 Insulin Glargine,Hum.rec.anlog (Basaglar Kwikpen U-100) 100 Unit/1 Ml Insuln.pen, 18 UNIT SC QHS, #1 EA Prov:PINEDA LINK NP 06/07/19 Multivitamins* (Theragran*) 1 Tab Tab, 1 TAB PO DAILY, #30 TAB Prov:PINEDA LINK NP 06/07/19 Cholecalciferol* (Vitamin D3*) 1,000 Unit Tablet, 5000 UNIT PO DAILY, #30 TAB Prov:PINEDA LINK NP 06/07/19 Ascorbic Acid (Vitamin C) 500 Mg Tab, 1000 MG PO BID, #60 TAB Prov:PINEDA LINK NP 06/07/19 [place]-3/Dha/Epa/Fish Oil (Fish Oil 1,000 mg Softgel) 1,000 Mg Capsule, 1000 MG PO BID, #60 CAP Prov:PINEDA LINK NP 06/07/19 Atorvastatin Calcium (Atorvastatin Calcium) 10 Mg Tablet, 10 MG PO QHS, #30 TAB Prov:PINEDA LINK NP 06/07/19 Apixaban* (Eliquis*) 5 Mg Tablet, 5 MG PO BID, #60 TAB 2 Refills start 04/19/19 Prov:ROHITANANTH GarrisonFRANSISCO M. 04/14/19 Discontinued Reported Medications Cephalexin* (Cephalexin*) 500 Mg Capsule, 500 MG PO Q6, #28 CAP 04/13/19 Metformin Hcl* (Metformin Hcl*) 1,000 Mg Tablet, 1000 MG PO WITH BREAKFAST DINNE, #60 TAB 04/13/19 Discontinued Scripts Apixaban* (Eliquis*) 5 Mg Tablet, 10 MG PO BID for 4 Days, #16 TAB Prov:LUCI BEE M. 04/14/19 Follow-up Plan Follow up with Dr. Timoteo Lobo (orthopedic surgeon) in one week Office Address [facility] [place] [address] [place] [address]. [address] [place] [address] Office Follow up with Dr. Brian Yadav (Vascular Surgeon) in 1-2 weeks for your left leg clot Office Address [address] [facility] [address] [address] Office Follow up with Dr. Gaurav Pickett (Infectious Disease Specialist) in 2 weeks Office Address [address] [place] [address] [place] [id number] Office Primary Care Provider [facility] Time spent on discharge: > 30 minutes PINEDA LINK NP Jun 09, 2019 19:11
== END 2019-06-07 17:45 | disposition home health service (06) | DRG 856 ==
LOC: FTE 13:58 → PP2 19:13
PROVIDERS: ADMIT Internal Medicine; ATTEND Internal Medicine
PROC: 0QPM04Z Removal of Internal Fixation Device from Left Tarsal, Open Approach (ICD-10-PCS; 2019-06-04)
PROC: 0QBM0ZX Excision of Left Tarsal, Open Approach, Diagnostic (ICD-10-PCS; principal; 2019-06-04 07:30)
PROC: 02H633Z Insertion of Infusion Device into Right Atrium, Percutaneous Approach (ICD-10-PCS; 2019-06-07)
DX: T81.42XA Infection following a procedure, deep incisional surgical site, initial encounter (principal); A41.9 Sepsis, unspecified organism; T84.84XA Pain due to internal orthopedic prosthetic devices, implants and grafts, initial encounter; T81.44XA Sepsis following a procedure, initial encounter; M25.572 Pain in left ankle and joints of left foot; E11.65 Type 2 diabetes mellitus with hyperglycemia; E66.9 Obesity, unspecified; S86.012D Strain of left Achilles tendon, subsequent encounter; E78.00 Pure hypercholesterolemia, unspecified; Z79.01 Long term (current) use of anticoagulants; Z79.4 Long term (current) use of insulin; Z86.718 Personal history of other venous thrombosis and embolism; Z79.84 Long term (current) use of oral hypoglycemic drugs; Y79.8 Miscellaneous orthopedic devices associated with adverse incidents, not elsewhere classified; X58.XXXD Exposure to other specified factors, subsequent encounter
CPT/HCPCS: 36415; 36569; 71045; 73721; 80048; 80053; 80061; 80202; 82306; 82962; 83036; 83735; 84100; 84134; 84466; 85025; 85610; 85651; 85730; 86140; 87070; 88300; 88304; 93971; 96361; 96365; 96375; C1713; J0692; J1170; J1644; J1815; J1885; J2175; J2270; J2405; J2543; J2710; J2795; J3010; J3370; J7040; J7042